=== PATIENT | male | born 1980 | race Caucasian/White ===

== ENCOUNTER 2020-07-12 09:58 | Outpatient (REF) | payer OTHER, SELFPAY ==
[2020-07-12 10:56] LABS: MANUAL DIFF FLAG NO
[2020-07-12 11:00] LABS: Basophils Percent Auto 0.6 % (0-2); Eosinophils Absolute Auto 0.1 X10*3/uL (0.0-0.4); Eosinophils Percent Auto 1.9 % (0-4); Hematocrit 46.7 % (42-52); Hemoglobin 15.8 g/dl (14.0-18.0); Imm Gran Abs Auto 0.01 X10*3/uL (0.00-0.03); Imm Gran Pct Auto 0.3 % (0.0-0.4); Lymphocytes Absolute Auto 1.2 X10*3/uL (1.2-4.9); Lymphocytes Percent Auto 39.2 % (20-40); Mean Corpuscular HGB Conc 33.8 g/dl (31.0-36.0); Mean Corpuscular Hemoglobin 30.6 pg (27.0-33.0); Mean Corpuscular Volume 90.5 fL (80-98); Mean Platelet Volume 10.5 fL (9.4-12.4); Monocytes Absolute Auto 0.4 X10*3/uL (0.1-1.2); Neutrophils Absolute Auto 1.5 X10*3/uL (2.0-8.3); Platelet Count 199 X10*3/uL (160-400); Red Blood Count 5.16 X10*6/uL (4.60-5.80); Red Cell Distribution Width 12.3 % (11.0-16.0); White Blood Count 3.2 X10*3/uL (4.8-10.8)
[2020-07-12 12:02] LABS: Alanine Aminotransferase 85 U/L (0-40); Alkaline Phosphatase 59 U/L (39-117); Anion Gap 14 (12-20); Aspartate Amino Transferase 41 U/L (5-37); Bilirubin Total 1.4 mg/dL (0.0-1.0); Blood Urea Nitrogen 23 mg/dL (9-16); Calcium 9.2 mg/dL (8.4-10.2); Carbon Dioxide 27 mmol/L (22-29); Chloride 106 mmol/L (96-108); Cholesterol 178 mg/dL; Estimated Glomerular Filt Rate > 60; Glucose Fasting 92 mg/dL (60-99); HDL Cholesterol 50 mg/dL; LDL Cholesterol Calculated 104 mg/dl; Potassium 4.3 mmol/l (3.3-5.1); Sodium 143 mmol/L (135-145); Total Protein 7.3 g/dL (6.5-8.0); Triglycerides 124 mg/dL
== END 2020-07-12 09:59 | disposition home or self-care (01) ==
LOC: HO.LAB 09:58
PROVIDERS: Visit Provider Internal Medicine
DX: E78.5 Hyperlipidemia, unspecified (principal); E11.9 Type 2 diabetes mellitus without complications
CPT/HCPCS: 36415; 80053; 80061; 85025

== ENCOUNTER 2020-08-10 07:30 | Outpatient (REF) | payer OTHER, SELFPAY | END 2020-08-10 07:31 | disposition home or self-care (01) | LOC: HO.LAB 07:30 | PROVIDERS: Visit Provider Internal Medicine | DX: Z20.828 Contact with and (suspected) exposure to other viral communicable diseases (principal) | CPT/HCPCS: C9803; U0003 ==

== ENCOUNTER → 2020-08-12 14:07 | Outpatient (BNVA) | payer OTHER, SELFPAY | PROVIDERS: PCP Internal Medicine; Referring Provider Internal Medicine; Visit Provider Surgery | DX: K64.4 Residual hemorrhoidal skin tags (principal) | CPT/HCPCS: 46600; 99202 ==

== ENCOUNTER 2021-07-26 08:18 | Outpatient (REF) | payer OTHER, SELFPAY ==
[2021-07-26 08:39] LABS: MANUAL DIFF FLAG NO
[2021-07-26 09:36] LABS: Basophils Percent Auto 0.8 % (0-2); Eosinophils Absolute Auto 0.1 X10*3/uL (0.0-0.4); Eosinophils Percent Auto 2.3 % (0-4); Hematocrit 47.6 % (42.0-52.0); Hemoglobin 15.9 g/dl (14.0-18.0); Imm Gran Abs Auto 0.01 X10*3/uL (0.00-0.03); Imm Gran Pct Auto 0.3 % (0.0-0.4); Lymphocytes Absolute Auto 1.3 X10*3/uL (1.2-4.9); Lymphocytes Percent Auto 37.3 % (20-40); Mean Corpuscular HGB Conc 33.4 g/dl (31.0-36.0); Mean Corpuscular Hemoglobin 30.3 pg (27.0-33.0); Mean Corpuscular Volume 90.8 fL (80.0-98.0); Mean Platelet Volume 10.5 fL (9.4-12.4); Monocytes Absolute Auto 0.4 X10*3/uL (0.1-1.2); Monocytes Percent Auto 10.7 % (2-11); Neutrophils Absolute Auto 1.7 x10*3/uL (2.0-8.3); Neutrophils Percent Auto 48.6 % (45-73); Platelet Count 200 X10*3/uL (160-400); Red Blood Count 5.24 X10*6/uL (4.60-5.80); Red Cell Distribution Width 12.1 % (11.0-16.0); White Blood Count 3.5 X10*3/uL (4.8-10.8)
[2021-07-26 10:04] LABS: Thyroid Stimulating Hormone 2.04 uIU/mL (0.32-4.0)
[2021-07-26 10:06] LABS: Alanine Aminotransferase 32 U/L (0-40); Albumin Level 4.9 g/dL (3.5-5.0); Alkaline Phosphatase 47 U/L (39-117); Anion Gap 13 (12-20); Aspartate Amino Transferase 24 U/L (5-37); Bilirubin Total 1.1 mg/dL (0.0-1.0); Blood Urea Nitrogen 13 mg/dL (9-16); Calcium 9.2 mg/dL (8.4-10.2); Carbon Dioxide 28 mmol/L (22-29); Chloride 106 mmol/L (96-108); Cholesterol 173 mg/dL; Estimated Glomerular Filt Rate > 60; Glucose Fasting 96 mg/dL (60-99); HDL Cholesterol 59 mg/dL; LDL Cholesterol Calculated 95 mg/dl; Sodium 143 mmol/L (135-145); Triglycerides 99 mg/dL
== END 2021-07-26 08:19 | disposition home or self-care (01) ==
LOC: HO.LAB 08:18
PROVIDERS: PCP Internal Medicine; Visit Provider Internal Medicine
DX: Z00.00 Encounter for general adult medical examination without abnormal findings (principal); E11.9 Type 2 diabetes mellitus without complications; E03.9 Hypothyroidism, unspecified
CPT/HCPCS: 36415; 80053; 80061; 84443; 85025

== ENCOUNTER 2022-04-15 09:06 | Outpatient (REF) | payer OTHER, SELFPAY ==
--- NOTE | 2022-04-15 | ECG_ITS ---
Test Reason : F41.9 Blood Pressure : / mmHG Vent. Rate : 065 BPM Atrial Rate : 065 BPM P-R Int : 150 ms QRS Dur : 092 ms QT Int : 390 ms P-R-T Axes : 058 012 028 degrees QTc Int : 405 ms Normal sinus rhythm Normal ECG When compared with ECG of 19-JUL-2012 08:05, No significant change was found Referred By: Lili Mo Electronically Signed By:RETA BORJAS
[2022-04-15 09:30] LABS: MANUAL DIFF FLAG NO
[2022-04-15 09:51] LABS: Eosinophils Absolute Auto 0.1 X10*3/uL (0.0-0.4); Hematocrit 46.1 % (42.0-52.0); Hemoglobin 15.8 g/dl (14.0-18.0); Imm Gran Abs Auto 0.01 X10*3/uL (0.00-0.03); Imm Gran Pct Auto 0.3 % (0.0-0.4); Lymphocytes Absolute Auto 1.2 X10*3/uL (1.2-4.9); Lymphocytes Percent Auto 38.6 % (20-40); Mean Corpuscular HGB Conc 34.3 g/dl (31.0-36.0); Mean Corpuscular Hemoglobin 30.8 pg (27.0-33.0); Mean Corpuscular Volume 89.9 fL (80.0-98.0); Mean Platelet Volume 10.1 fL (9.4-12.4); Monocytes Absolute Auto 0.4 X10*3/uL (0.1-1.2); Monocytes Percent Auto 12.1 % (2-11); Neutrophils Absolute Auto 1.4 x10*3/uL (2.0-8.3); Platelet Count 187 X10*3/uL (160-400); Red Blood Count 5.13 X10*6/uL (4.60-5.80); Red Cell Distribution Width 12.4 % (11.0-16.0); White Blood Count 3.1 X10*3/uL (4.8-10.8)
[2022-04-15 10:19] LABS: Alanine Aminotransferase 33 U/L (0-40); Albumin Level 4.9 g/dL (3.5-5.0); Alkaline Phosphatase 45 U/L (39-117); Anion Gap 10 (12-20); Aspartate Amino Transferase 25 U/L (5-37); Bilirubin Direct 0.4 mg/dL (0.0-0.5); Blood Urea Nitrogen 13 mg/dL (9-16); Calcium 8.9 mg/dL (8.4-10.2); Carbon Dioxide 27 mmol/L (22-29); Chloride 108 mmol/L (96-108); Estimated Glomerular Filt Rate > 60; Glucose Random 100 mg/dL (60-115); Potassium 4.3 mmol/L (3.3-5.1); Sodium 141 mmol/L (135-145); Total Protein 7.2 g/dL (6.5-8.0)
[2022-04-15 10:42] LABS: Thyroid Stimulating Hormone 1.73 uIU/mL (0.32-4.0)
== END 2022-04-15 09:07 | disposition home or self-care (01) ==
LOC: HO.LAB 09:06
PROVIDERS: PCP Internal Medicine; Visit Provider Clinical Nurse Specialist Psychiatric/Mental Health, Adult
DX: F41.9 Anxiety disorder, unspecified (principal)
CPT/HCPCS: 80048; 80076; 84443; 85025; 93005

== ENCOUNTER 2023-04-24 09:26 | Outpatient (REF) | payer OTHER, SELFPAY ==
[2023-04-24 09:34] LABS: MANUAL DIFF FLAG NO
[2023-04-24 10:13] LABS: Basophils Percent Auto 0.9 % (0-2); Eosinophils Absolute Auto 0.1 X10*3/uL (0.0-0.4); Eosinophils Percent Auto 2.3 % (0-4); Hematocrit 47.8 % (42.0-52.0); Hemoglobin 16.1 g/dl (14.0-18.0); Lymphocytes Absolute Auto 1.2 X10*3/uL (1.2-4.9); Lymphocytes Percent Auto 28.3 % (20-40); Mean Corpuscular HGB Conc 33.7 g/dl (31.0-36.0); Mean Corpuscular Hemoglobin 30.6 pg (27.0-33.0); Mean Corpuscular Volume 90.7 fL (80.0-98.0); Mean Platelet Volume 10.2 fL (9.4-12.4); Monocytes Absolute Auto 0.6 X10*3/uL (0.1-1.2); Monocytes Percent Auto 13.3 % (2-11); Neutrophils Absolute Auto 2.4 x10*3/uL (2.0-8.3); Neutrophils Percent Auto 55.2 % (45-73); Platelet Count 185 X10*3/uL (160-400); Red Blood Count 5.27 X10*6/uL (4.60-5.80); Red Cell Distribution Width 12.5 % (11.0-16.0); White Blood Count 4.4 X10*3/uL (4.8-10.8)
[2023-04-24 12:08] LABS: Alanine Aminotransferase 29 U/L (0-40); Albumin Level 4.6 g/dL (3.5-5.0); Alkaline Phosphatase 47 U/L (39-117); Anion Gap 13 (12-20); Aspartate Amino Transferase 21 U/L (5-37); Bilirubin Total 0.6 mg/dL (0.0-1.0); Blood Urea Nitrogen 12 mg/dL (9-16); Calcium 9.1 mg/dL (8.4-10.2); Carbon Dioxide 27 mmol/L (22-29); Chloride 107 mmol/L (96-108); Cholesterol 155 mg/dL; Estimated Glomerular Filt Rate > 60; Glucose Fasting 96 mg/dL (60-99); HDL Cholesterol 52 mg/dL; LDL Cholesterol Calculated 91 mg/dl; Sodium 143 mmol/L (135-145); Total Protein 6.9 g/dL (6.5-8.0); Triglycerides 64 mg/dL
[2023-04-24 12:09] LABS: TSH reflex Free T4 1.35 uIU/mL (0.32-4.0); Vitamin B12 490 pg/mL (200-900); Vitamin D 25-OH Total 23.9 ng/mL (>30)
== END 2023-04-24 09:27 | disposition home or self-care (01) ==
LOC: HO.LAB 09:26
PROVIDERS: PCP Internal Medicine; Visit Provider Internal Medicine
DX: Z00.00 Encounter for general adult medical examination without abnormal findings (principal); E78.5 Hyperlipidemia, unspecified; K21.9 Gastro-esophageal reflux disease without esophagitis
CPT/HCPCS: 36415; 80053; 80061; 82306; 82607; 82746; 84443; 85025

== ENCOUNTER 2023-05-12 14:24 | Outpatient (AMB) | payer OTHER, SELFPAY ==
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
[2023-05-12 14:33] VITALS: BP 128/70; PULSE 91; TEMP 36.6; O2SAT 100; BMI 40.2
== END 2023-05-12 16:32 | disposition home or self-care (01) ==
PROVIDERS: PCP Internal Medicine; Visit Provider Internal Medicine
DX: M54.50 Low back pain, unspecified (principal)
CPT/HCPCS: 99213

== ENCOUNTER 2023-07-13 15:55 | Outpatient (AMB) | payer MEDICARE, MEDICAID, SELFPAY ==
[2023-07-13 16:26] VITALS: BP 122/70; PULSE 76; TEMP 36.9; O2SAT 97; BMI 30.3
--- NOTE | 2023-07-13 16:26 | MHC.OFFWIV ---
Intake Vital Signs 07/13/23 16:26 Height 5 ft 8 in Weight 199 lb 8 oz BMI 30.3 BP 122/70 Blood Pressure Location Rt brachial Position Sitting Pulse 76 Pulse Source Pulse Oximeter Temp 98.5 F Temp Source Temporal Artery Scan Pulse Oximetry (%) 97 Oxygen Delivery Method Room Air Intake Visit Reasons: EP, back pain, nausea, headache Intake Note: pt is here for c/o back pain and headache and nausea Patient Tobacco Use Status: Never used Tobacco Allergies PCN Allergy (Unknown, Uncoded 07/14/23 06:46) oral swelling Medication List - Last Reconciled 07/14/23 by Thaddeus Krause MD acetaminophen (Tylenol) 650 mg (2 x 325 mg) PO Q6H PRN buspirone 10 mg PO BID ibuprofen 400 mg PO Q8H PRN simvastatin 20 mg PO BEDTIME Do you need a note to return to daycare/school/sports/work: Yes HPI EP, back pain, nausea, headache HPI Details 42-year-old male presents to the office for a sick visit. Patient lives in a senior living and is being brought in by an attendant. According to the attendant, patient has been complaining of headaches and back pain. Patient is able to verbalize and give his own history. Is complaining of on and off headaches which are mild. No nausea or vomiting. No changes in vision. No history of fall or injury ON LICENSE OF [facility] Medical History External hemorrhoids Obesity Physical exam Surgical History No pertinent past surgical history Family History Father History of colon cancer Mother History of colon polyps Substance use disorder Mental health disorder Social History Housing: Other Housing Other:: [facility] Alcohol intake: never Patient Tobacco Use Status: Never used Tobacco e-Cigarette/Vaping Use: Never Used Second Hand Smoke Exposure: No service: No Current occupational status: disabled Cognitive needs: No Hearing needs: No Vision needs: No Physical Exam Vital Signs: Last Vital Signs Temp 98.5 F 07/13/23 16:26 Pulse 76 07/13/23 16:26 BP 122/70 07/13/23 16:26 Pulse Ox 97 07/13/23 16:26 Oxygen Delivery Method Room Air 07/13/23 16:26 BMI result Body Mass Index 30.3 Const General: cooperative and healthy appearing Nutritional Appearance: well nourished Orientation/consciousness: patient oriented x3 Limitations: no limitations HEENT Head: Yes normal to inspection Eyes General: appearance normal, both eyes and all related structures Neck Neck: Yes normal visual inspection Chest Chest palpation & inspection: normal palpation of entire chest wall Resp Effort & Inspection: normal respiratory effort Neuro General: patient oriented x3 Assessment & Plan Assessment & Plan (1) Headache: Code(s): R51.9 - Headache, unspecified Plan: Mostly vascular in nature. OTC NSAIDS prescribed. Follow up here if sx not better. Medications: New ibuprofen 400 mg PO Q8H PRN 21 tabs 0RF pain Coding Level of Care Code Est Pt Level 3 (55133) Diagnoses Headache R51.9
== END 2023-07-13 17:06 | disposition home or self-care (01) ==
PROVIDERS: PCP Internal Medicine; Visit Provider Internal Medicine
DX: R51.9 Headache, unspecified (principal)
CPT/HCPCS: 99213

== ENCOUNTER 2023-07-27 13:31 | Outpatient (AMB) | payer MEDICARE, MEDICAID, SELFPAY ==
--- NOTE | 2023-07-27 13:43 | MHC.PC.OV ---
Vital Signs 07/27/23 13:44 Height 5 ft 8 in Weight 199 lb BMI 30.3 BP 118/70 Blood Pressure Location Lt brachial Position Sitting Pulse 90 Pulse Source Pulse Oximeter Pulse Oximetry (%) 97 Oxygen Delivery Method Room Air Intake Visit Reasons: Back Pains Intake Note: Patient is here today for chest pain, nausea, vomiting, calmness and back pain, ongoing since February 2023 Patient Biller Required: No Build Master: Present Accompanied by: staff Allergies PCN Allergy (Unknown, Uncoded 07/27/23 14:05) oral swelling Medication List - Last Reconciled 07/27/23 by SUNNI Montemayor acetaminophen (Tylenol) 650 mg (2 x 325 mg) PO Q6H PRN buspirone 10 mg PO BID ibuprofen 400 mg PO Q8H PRN simvastatin 20 mg PO BEDTIME Tobacco use date assessed: 07/27/23 Dental Screening Dental Screen Date: 07/27/23 Did you have a dental visit in the last 12 months?: Yes Did you have a dental problem in the last 6 months where you did not have access to dental care?: No Was dental information given to patient?: Patient has dentist HPI Back Pains HPI Details Patient is a 42-year-old female who presents today for an office visit due to epigastric pain and heartburn for long time now. Reports he feels better when he drinks cold water. Patient of Dr. Platt. Reports intermittent nausea/vomiting, reports vomiting phlegm this morning. Reports drinking soda and coffee on empty stomach. Reports normal bowel movement today. Denies chest pain in the office. Denies any back pain today. Went to [facility] 07/20/2023 due to the same symptoms, he did have normal EKG and negative troponin most likely related to anxiety. Patient is accompanied by a account group supervisor. [facility] Medical History COVID-19 virus infection Obesity Physical exam External hemorrhoids Surgical History No pertinent past surgical history Family History Father History of colon cancer Mother History of colon polyps Substance use disorder Mental health disorder Social History Housing: Other Housing Other:: [facility] Alcohol intake: never Patient Tobacco Use Status: Never used Tobacco e-Cigarette/Vaping Use: Never Used Second Hand Smoke Exposure: No service: No Current occupational status: disabled Cognitive needs: No Hearing needs: No Vision needs: No Questionnaire Thrive Questionnaire Date Thrive assessed: 09/22/22 DREA-7 AMB Questionnaire DREA-7 Date DREA - 7 assessed: 09/22/22 Source: Developed by Drs. Abel Malone, Flor Malone, Dewayne Sandoval and colleagues, with an educational real from [employer]. Review of Systems Const Denies body aches, Denies chills, Denies fever(s) and Denies headache(s) ENT Denies dizziness, Denies otalgia, Denies headache(s), Denies nasal discharge, Denies sinus pain and Denies sore throat Card Denies chest pain, Denies edema, Denies lightheadedness and Denies dyspnea Resp Denies cough, Denies dyspnea and Denies wheezing GI Denies abdominal pain, Denies constipation, Reports heartburn, Denies diarrhea, Reports nausea and Reports vomiting Denies dysuria Musc Denies myalgias Skin/Breast Denies rash Neuro Denies dizziness and Denies headache(s) Aller/Immun Denies wheezing Physical exam (Primary Care) Vital Signs: Last Vital Signs Pulse 90 07/27/23 13:44 BP 118/70 07/27/23 13:44 Pulse Ox 97 07/27/23 13:44 Oxygen Delivery Method Room Air 07/27/23 13:44 BMI result Body Mass Index 30.3 Tobacco/Smoking Status: Tobacco use Status Tobacco use date assessed 07/27/23 07/27/23 13:51 Patient Tobacco Use Status Never used Tobacco 07/27/23 13:51 e-Cigarette/Vaping Use Never Used 07/27/23 13:51 Thrive Assessment: Date of Thrive Assessment Date Thrive assessed 09/22/22 07/27/23 13:51 Const General: cooperative and no acute distress Orientation/consciousness: patient oriented x3 HENMT Head: Yes normocephalic and Yes atraumatic Throat: Yes posterior oropharynx normal Eyes General: appearance normal, both eyes and all related structures Neck Neck: Yes normal visual inspection and Yes full ROM Resp Effort & Inspection: normal respiratory effort and able to speak in complete sentences Auscultation: clear to auscultation bilaterally, no crackles, no rales, no rhonchi and no wheezes Cardio Rate: regular rate Rhythm: regular rhythm Heart sounds: S1 normal heart sound present, S2 normal heart sound present and no murmurs GI Palpation (GI): Soft to palpation, not firm, Tenderness to palpation present (GI) in the epigastrum; with no rebound tenderness, no guarding, not rigid and no hepatosplenomegaly Auscultation: normal bowel sounds Back/Spine/Pelvis Thoracic/Lumbar Spine: thoraco-lumbar ROM normal, No paraspinal muscle tenderness, No thoracic spinal tenderness and No lumbar spinal tenderness Skin General skin exam: no rashes or lesions noted Neuro General: patient oriented x3 Gait exam (Neuro): Normal gait present Extrem General: Yes full ROM and No edema Office Procedures Flu Questionnaire Does the patient have a severe egg allergy?: No Does the patient have severe life threatening allergies?: No Does the patient have a fever or illness today?: No Has the patient ever had Guillain-[place] Syndrome?: No Has the patient ever had any past reaction to a flu shot?: No Immunizations flu vacc [id number] 6mos up(PF) 60 mcg(15 mcgx4)/0.5 mL IM syringe Performing Provider: SUNNI Montemayor Performing Location: [facility] Administered by: ANNETTE Joyner on 07/27/23 13:57 Dose Route Admin Location Dispensed Lot Number Expiration Date NDC Magnetic Resonance Imaging Director 0.5 mL IM Left Deltoid 0.5 mL [id number] 03/19/24 22744-983-07 [employer] VIS Given Date VIS Provided VIS Publication Date 07/27/23 Single Vaccine 21 Eligibility Eligibility Date Funding Source Not [facility] Eligible 07/27/23 Private Assessment and Plan Assessment & Plan (1) GERD (gastroesophageal reflux disease): Code(s): K21.9 - Gastro-esophageal reflux disease without esophagitis Plan: Start omeprazole 20 mg daily Avoid GERD trigger foods Do not lay down 2-3 hours after evening meal Signs and symptoms reviewed when to notify provider or go to the emergency department Keep appointment with PCP 09/2023 as scheduled Orders: Orders Influenza Immunization 07/27/23 Z23 - Encounter for immunization Medications: New omeprazole 20 mg PO DAILY 60 caps 0RF K21.9 - Gastro-esophageal reflux disease without esophagitis Coding Level of Care Code Est Pt Level 3 (00626) Diagnoses GERD (gastroesophageal reflux disease) K21.9
[2023-07-27 13:44] VITALS: BP 118/70; PULSE 90; O2SAT 97; BMI 30.3
== END 2023-07-27 14:22 | disposition home or self-care (01) ==
PROVIDERS: PCP Internal Medicine; Visit Provider Nurse Practitioner Family
DX: Z23 Encounter for immunization (principal)
CPT/HCPCS: 90471; 90686; 99213

== ENCOUNTER 2023-09-23 13:20 | Outpatient (AMB) | payer MEDICARE, MEDICAID, SELFPAY ==
[2023-09-23 13:21] VITALS: BP 122/78; PULSE 78; O2SAT 98; BMI 30.9
--- NOTE | 2023-09-23 13:21 | MHC.PC.OV ---
Vital Signs 09/23/23 13:21 Height 5 ft 8 in Weight 203 lb BMI 30.9 BP 122/78 Blood Pressure Location Lt brachial Position Sitting Pulse 78 Pulse Source Pulse Oximeter Pulse Oximetry (%) 98 Oxygen Delivery Method Room Air Intake Visit Reasons: Annual Exam Intake Note: Patient is here today for a physical. First Assistant Required: No Allergies PCN Allergy (Unknown, Uncoded 09/23/23 13:21) oral swelling Medication List - Last Reconciled 09/23/23 by Jenni Platt MD acetaminophen (Tylenol) 650 mg (2 x 325 mg) PO Q6H PRN buspirone 20 mg PO BID fluoxetine 40 mg PO DAILY guanfacine ER 4 mg PO QPM ibuprofen 400 mg PO Q8H PRN omeprazole 20 mg PO DAILY simvastatin 20 mg PO BEDTIME Tobacco use date assessed: 09/23/23 Dental Screening Dental Screen Date: 09/23/23 Did you have a dental visit in the last 12 months?: Yes Did you have a dental problem in the last 6 months where you did not have access to dental care?: No Was dental information given to patient?: Patient has dentist HPI Annual Exam HPI Details 42-year-old obese male with GERD obsessive-compulsive behavior and hypercholesterolemia last seen in December 2022. Patient is here for physical exam review of the notes was seen by the nurse practitioner in July 2023 for back pains was in the ER 07/20/2023 concern about anxiety GERD problem and was given omeprazole. L shoulder pain 2 years PFSH Medical History (Updated 09/23/23 @ 14:11 by Jenni Platt MD) Physical exam, annual COVID-19 virus infection Obesity Physical exam External hemorrhoids Surgical History No pertinent past surgical history Family History Father History of colon cancer Mother History of colon polyps Substance use disorder Mental health disorder Social History (Updated 09/23/23 @ 14:02 by Jenni Platt MD) Housing: Other Housing Other:: Care Home Alcohol intake: current Comment: once a month 1 drink Patient Tobacco Use Status: Never used Tobacco e-Cigarette/Vaping Use: Never Used Second Hand Smoke Exposure: No service: No Current occupational status: disabled Cognitive needs: No Hearing needs: No Vision needs: No Questionnaire PHQ-9 Over the last 2 weeks, how often have you been bothered by any of the following problems? 1. Little interest or pleasure in doing things: not at all 2. Feeling down, depressed, or hopeless: not at all 3. Trouble falling or staying asleep, or sleeping too much: not at all 4. Feeling tired or having little energy: not at all 5. Poor appetite or overeating: not at all 6. Feeling bad about yourself - or that you are a failure or have let yourself or your family down: not at all 7. Trouble concentrating on things, such as reading the newspaper or watching television: not at all 8. Moving or speaking so slowly that other people could have noticed. Or the opposite - being so fidgety or restless that you have been moving around a lot more than usual: not at all 9. Thoughts that you would be better off or of hurting yourself in some way: not at all Total score: 0 Depression Screening Interpretation: Negative Depression Screening Done: Yes Source: Developed by Drs. Abel Malone, Flor Malone, Dewayne Sandoval and colleagues, with an educational real from [employer]. Thrive Questionnaire Date Thrive assessed: 09/23/23 I am a: Patient What is your living situation today?: I have a steady place to live Within the past 12 months, did the food you bought not last and you didn't have the money to get more?: Never true Within the past 12 months, did you worry whether your food would run out before you got money to buy more?: Never true Do you have trouble paying for medicines?: No Do you have trouble getting transportation to medical appointments?: No Do you have trouble paying your heating and electricity bill?: No Do you have trouble taking care of your child, family member or friend?: No Do you have trouble with day-to-day activities such as bathing, preparing meals, shopping, managing finances, etc.?: No Are you currently unemployed and looking for a job?: No Are you interested in more education?: No AUDIT C Alcohol Use Questionnaire (AUDIT-C) 1. How often do you have a drink containing alcohol?: Monthly or less 2. How many drinks containing alcohol do you have on a typical day when you are drinking?: 1 or 2 3. How often do you have six or more drinks on one occasion?: Never Total Score: 1 Score Reviewed/Action Taken: No DREA-7 AMB Questionnaire DREA-7 Date DREA - 7 assessed: 09/23/23 Feeling nervous, anxious, or on edge: 0 = Not at all Not being able to stop or control worryin = Not at all Worrying too much about different things: 0 = Not at all Trouble relaxin = Not at all Being so restless that it is hard to sit still: 0 = Not at all Becoming easily annoyed or irritable: 0 = Not at all Feeling afraid as if something awful might happen: 0 = Not at all Total DREA-7 score (0-4 normal; 5-9 mild; 10-14 moderate; 15-21 severe): 0 Source: Developed by Drs. Abel Malone, Flor Malone, Dewayne Sandoval and colleagues, with an educational real from [employer]. Review of Systems Const Denies poor appetite and Denies weakness Eyes Denies no additional complaints ENT Reports Normal hearing present, Denies dizziness, Denies nasal congestion, Denies tinnitus and Denies sore throat Card Denies chest pain, Denies syncope, Denies rapid heart rate and Denies dyspnea Resp Denies cough and Denies dyspnea GI Denies change in stool character, Reports constipation, Denies diarrhea, Denies nausea and Denies vomiting Denies dysuria and Denies urinary frequency Neuro Reports Normal hearing present, Denies confusion, Denies dizziness, Denies syncope and Denies weakness Psych Denies confusion Physical exam (Primary Care) Vital Signs: Last Vital Signs Pulse 78 09/23/23 13:21 BP 122/78 09/23/23 13:21 Pulse Ox 98 09/23/23 13:21 Oxygen Delivery Method Room Air 09/23/23 13:21 BMI result Body Mass Index 30.9 Tobacco/Smoking Status: Tobacco use Status Tobacco use date assessed 09/23/23 09/23/23 13:22 Patient Tobacco Use Status Never used Tobacco 09/23/23 13:22 e-Cigarette/Vaping Use Never Used 09/23/23 13:22 PHQ-9: PHQ-9 Score PHQ-9: Total score 0 09/23/23 13:22 Depression Screening Interpretation: Negative Thrive Assessment: Date of Thrive Assessment Date Thrive assessed 09/23/23 09/23/23 13:22 Const General: No confusion Orientation/consciousness: No confusion HENMT Head: Yes normocephalic Ears: external ears normal and TM's normal bilaterally Face and sinus: Yes normal facial exam Mouth: moist mucous membranes Throat: Yes tonsils normal Eyes Conjunctivae: conjunctivae normal Pupils: Equal, round and reactive pupils present and Pupil accommodation reflex normal Direct Ophthalmoscopy: normal light reflex Neck Other: trapesium pain L - but exam N Neck: No lymphadenopathy Thyroid: Thyroid normal Chest Chest palpation & inspection: normal inspection of the chest Resp Effort & Inspection: normal respiratory effort and no audible wheezes Auscultation: clear to auscultation bilaterally, no crackles, no wheezes and lung sounds not diminished Cardio Rate: regular rate Rhythm: regular rhythm Peripheral pulses: radial pulses present and dorsalis pedis present GI Other: visual exam neg Palpation (GI): no masses Auscultation: normal bowel sounds and normoactive bowel sounds Rectal Exam - Male: Yes deferred Male General Exam: Yes normal external exam Skin General skin exam: no rashes or lesions noted Rashes: no rashes Neuro General: No confusion Cranial nerves: Yes Equal, round and reactive pupils present and Yes Normal hearing present Cognition (Neuro): normal cognition Gait exam (Neuro): Normal gait present Motor exam (neuro): 5/5 motor strength present throughout Deep tendon reflexes (DTR's): Right brachioradialis reflex intensity grade: 2+, Left brachioradialis reflex intensity grade: 2+, Right patellar reflex intensity grade: 2+ and Left patellar reflex intensity grade: 2+ Extrem General: No edema Assessment and Plan Assessment & Plan (1) Physical exam, annual: Code(s): Z00.00 - Encounter for general adult medical examination without abnormal findings (2) GERD (gastroesophageal reflux disease): Code(s): K21.9 - Gastro-esophageal reflux disease without esophagitis Plan: Avoid the foods that causes that usually spicy foods, tomato products, juices, coffee, soda and foods that your sensitive to. After eating do not lie down, allow 3-4 hours before in lie down. And keep the head of bed above 30 degrees to avoid the acid from going up. Presently on omeprazole (3) Obsessive compulsive disorder: Code(s): F42.9 - Obsessive-compulsive disorder, unspecified Plan: Continue with counseling and therapy (4) Obesity: Code(s): E66.9 - Obesity, unspecified Qualifiers: Obesity classification: adult class 1 (BMI 30 - 34.9) Serious obesity comorbidity presence: without serious comorbidity Body mass index: BMI 31.0-31.9 Plan: Diet and exercise (5) Hyperlipidemia: Code(s): E78.5 - Hyperlipidemia, unspecified Plan: Avoid fried foods, chicken skin, eggs, butter margarine, pastries and meat. Be it pork or beef they have a lot of cholesterol LDL goal of less than 130 and triglyceride of less than 150. Patient on simvastatin 20 mg once a day (6) Trapezius strain: Code(s): S46.819A - Strain of other muscles, fascia and tendons at shoulder and upper arm level, unspecified arm, initial encounter Plan: advised heat and exercise Coding Level of Care Code Est Pt Prev Care 40-64y(77467) Diagnoses Physical exam, annual Z00.00 GERD (gastroesophageal reflux disease) K21.9 Obsessive compulsive disorder F42.9 Obesity E66.9 Obesity classification: adult class 1 (BMI 30 - 34.9) Serious obesity comorbidity presence: without serious comorbidity Body mass index: BMI 31.0-31.9 Hyperlipidemia E78.5 Trapezius strain S46.819A
== END 2023-09-23 14:21 | disposition home or self-care (01) ==
PROVIDERS: Visit Provider Internal Medicine
DX: Z00.00 Encounter for general adult medical examination without abnormal findings (principal); K21.9 Gastro-esophageal reflux disease without esophagitis; E66.9 Obesity, unspecified; Z68.30 Body mass index [BMI] 30.0-30.9, adult; F42.9 Obsessive-compulsive disorder, unspecified; E78.5 Hyperlipidemia, unspecified; S46.819A Strain of other muscles, fascia and tendons at shoulder and upper arm level, unspecified arm, initial encounter
CPT/HCPCS: 99396

== ENCOUNTER 2024-03-27 12:57 | Outpatient (AMB) | payer MEDICARE, MEDICAID, SELFPAY ==
--- NOTE | 2024-03-27 13:01 | MHC.PC.OV ---
Vital Signs 03/27/24 13:08 Height 5 ft 8 in Weight 214 lb BMI 32.5 BP 128/78 Blood Pressure Location Lt brachial Position Sitting Pulse 80 Pulse Source Pulse Oximeter Pulse Oximetry (%) 98 Oxygen Delivery Method Room Air Intake Visit Reasons: cholesterol Intake Note: Caregiver would like the patient to undergo a barium swallow as she finds that he is choking more often. Patient does have dentures that he does not like to use and therefore is probably not chewing his food properly but she would like to be sure. Allergies PCN Allergy (Unknown, Uncoded 03/27/24 13:08) oral swelling Tobacco use date assessed: 09/23/23 Dental Screening Dental Screen Date: 09/23/23 HPI cholesterol HPI Details 43-year-old obese male(noted 11 lb weight gain) with a history of GERD hypercholesterolemia and obsessive-compulsive disorder coming in for follow-up. Last seen in 10/09/2023. Review of the notes wanted to be seen today for concern on December 02 on needing to be restrained. 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 rohan [place] [phone] trying to call busy left message on the phone [facility] Medical History (Updated 03/27/24 @ 13:49 by Jenni Platt MD) Physical exam, annual COVID-19 virus infection Obesity Physical exam External hemorrhoids Surgical History No pertinent past surgical history Family History Father History of colon cancer Mother History of colon polyps Substance use disorder Mental health disorder Social History (Updated 09/23/23 @ 14:02 by Jenni Platt MD) Housing: Other Housing Other:: Half-Way Alcohol intake: current Comment: once a month 1 drink Patient Tobacco Use Status: Never used Tobacco e-Cigarette/Vaping Use: Never Used Second Hand Smoke Exposure: No service: No Current occupational status: disabled Cognitive needs: No Hearing needs: No Vision needs: No Questionnaire PHQ-9 Over the last 2 weeks, how often have you been bothered by any of the following problems? 1. Little interest or pleasure in doing things: not at all 2. Feeling down, depressed, or hopeless: not at all 3. Trouble falling or staying asleep, or sleeping too much: not at all 4. Feeling tired or having little energy: not at all 5. Poor appetite or overeating: not at all 6. Feeling bad about yourself - or that you are a failure or have let yourself or your family down: not at all 7. Trouble concentrating on things, such as reading the newspaper or watching television: not at all 8. Moving or speaking so slowly that other people could have noticed. Or the opposite - being so fidgety or restless that you have been moving around a lot more than usual: not at all 9. Thoughts that you would be better off or of hurting yourself in some way: not at all Total score: 0 Depression Screening Interpretation: Negative Depression Screening Done: Yes Source: Developed by Drs. Abel Malone, Flor Malone, Dewayne Sandoval and colleagues, with an educational real from [employer]. Thrive Questionnaire Date Thrive assessed: 09/23/23 AUDIT C Alcohol Use Questionnaire (AUDIT-C) 1. How often do you have a drink containing alcohol?: Monthly or less 2. How many drinks containing alcohol do you have on a typical day when you are drinking?: 1 or 2 3. How often do you have six or more drinks on one occasion?: Never Total Score: 1 Score Reviewed/Action Taken: No DREA-7 AMB Questionnaire DREA-7 Date DREA - 7 assessed: 09/23/23 Source: Developed by Drs. Abel Malone, Flor Malone, Dewayne Sandoval and colleagues, with an educational real from [employer]. Physical exam (Primary Care) Vital Signs: Last Vital Signs Pulse 80 03/27/24 13:08 BP 128/78 03/27/24 13:08 Pulse Ox 98 03/27/24 13:08 Oxygen Delivery Method Room Air 03/27/24 13:08 BMI result Body Mass Index 32.5 Tobacco/Smoking Status: Tobacco use Status Tobacco use date assessed 09/23/23 03/27/24 13:01 Patient Tobacco Use Status Never used Tobacco 03/27/24 13:01 e-Cigarette/Vaping Use Never Used 03/27/24 13:01 PHQ-9: PHQ-9 Score PHQ-9: Total score 0 03/27/24 13:42 Depression Screening Interpretation: Negative Thrive Assessment: Date of Thrive Assessment Date Thrive assessed 09/23/23 03/27/24 13:01 Const General: alert; No acute distress Eyes Conjunctivae: conjunctivae normal Resp Auscultation: clear to auscultation bilaterally Cardio Rate: regular rate Rhythm: regular rhythm GI Inspection: Yes normal to inspection Extrem General: Yes normal to inspection and No edema Assessment and Plan Assessment & Plan (1) Obesity: Code(s): E66.9 - Obesity, unspecified Qualifiers: Body mass index: BMI 31.0-31.9 Obesity classification: adult class 1 (BMI 30 - 34.9) Serious obesity comorbidity presence: without serious comorbidity Plan: Diet and exercise (2) Obsessive compulsive disorder: Code(s): F42.9 - Obsessive-compulsive disorder, unspecified Plan: has been told that patient is not behaving and has not been listening - is seeing psychiatric nurse and left message on the phone. Concern about control. (3) GERD (gastroesophageal reflux disease): Code(s): K21.9 - Gastro-esophageal reflux disease without esophagitis Plan: Avoid the foods that causes that usually spicy foods, tomato products, juices, coffee, soda and foods that your sensitive to. After eating do not lie down, allow 3-4 hours before in lie down. And keep the head of bed above 30 degrees to avoid the acid from going up. (4) Dysphagia: Code(s): R13.10 - Dysphagia, unspecified Plan: Barium swallow requested (5) Colon cancer screening: Code(s): Z12.11 - Encounter for screening for malignant neoplasm of colon Plan: Referral to Gastroenterology Orders: Orders FL barium swallow Today R13.10 - Dysphagia, unspecified FL upper GI series Today R13.10 - Dysphagia, unspecified Coding Level of Care Code Est Pt Level 4 (72044) Diagnoses Obesity E66.9 Body mass index: BMI 31.0-31.9 Obesity classification: adult class 1 (BMI 30 - 34.9) Serious obesity comorbidity presence: without serious comorbidity Obsessive compulsive disorder F42.9 GERD (gastroesophageal reflux disease) K21.9 Dysphagia R13.10 Colon cancer screening Z12.11
[2024-03-27 13:08] VITALS: BP 128/78; PULSE 80; O2SAT 98; BMI 32.5
== END 2024-03-27 13:57 | disposition home or self-care (01) ==
PROVIDERS: PCP Internal Medicine; Visit Provider Internal Medicine
DX: R13.10 Dysphagia, unspecified (principal); K21.9 Gastro-esophageal reflux disease without esophagitis; E78.00 Pure hypercholesterolemia, unspecified; F42.9 Obsessive-compulsive disorder, unspecified
CPT/HCPCS: 99214

== ENCOUNTER 2024-05-10 09:50 | Outpatient (AMB) | payer MEDICARE, MEDICAID, SELFPAY ==
[2024-05-10 09:55] VITALS: BP 116/75; PULSE 87; O2SAT 97; BMI 32.4
--- NOTE | 2024-05-10 09:55 | MHC.PC.OV ---
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 Platt coming in for acute problem. Today he tells us he has been having shoulder pain radiating into the elbows for the last 2 weeks. 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 He has pain with overhead activities and with internal rotation of the bilateral shoulders. Denies any inciting injury or fall and denies numbness and tingling in bilateral hands.. Pain is worse at the end of the day and 1st thing in the morning. He does mentioned he moves around a lot while sleeping and sometimes falls asleep on the shoulder. He takes Tylenol and ibuprofen as needed for pain. He also mentions he has a cough that started today without any other associated symptoms. [facility] Medical History (Updated 05/10/24 @ 10:27 by Irene Pittman PA-C) Physical exam, annual COVID-19 virus infection Obesity Physical exam External hemorrhoids Surgical History No pertinent past surgical history Family History Father History of colon cancer Mother History of colon polyps Substance use disorder Mental health disorder Social History (Updated 09/23/23 @ 14:02 by Jenni Platt MD) Housing: Other Housing Other:: [facility] Alcohol intake: current Comment: once a month 1 drink Patient Tobacco Use Status: Never used Tobacco e-Cigarette/Vaping Use: Never Used Second Hand Smoke Exposure: No service: No Current occupational status: disabled Cognitive needs: No Hearing needs: No Vision needs: No Questionnaire Thrive Questionnaire Date Thrive assessed: 09/23/23 AUDIT C Alcohol Use Questionnaire (AUDIT-C) 1. How often do you have a drink containing alcohol?: Monthly or less 2. How many drinks containing alcohol do you have on a typical day when you are drinking?: 1 or 2 3. How often do you have six or more drinks on one occasion?: Never Total Score: 1 Score Reviewed/Action Taken: No DREA-7 AMB Questionnaire DREA-7 Date DREA - 7 assessed: 09/23/23 Source: Developed by Drs. Abel Malone, Flor Malone, Dewayne Sandoval and colleagues, with an educational real from [employer]. Review of Systems Const Denies body aches, Denies chills, Denies fever(s), Denies headache(s) and Denies poor appetite Eyes Reports no additional complaints ENT Reports dizziness (Occasionally) and Denies headache(s) Card Reports no additional complaints, Denies lightheadedness and Denies dyspnea Resp Reports cough, Denies hemoptysis and Denies dyspnea GI Reports no additional complaints Reports no additional complaints Musc Reports as per HPI Skin/Breast Reports system reviewed and no additional complaints, except as documented Neuro Reports dizziness (Occasionally) and Denies headache(s) Psych Reports no additional complaints Physical exam (Primary Care) Vital Signs: Last Vital Signs Pulse 87 05/10/24 09:55 BP 116/75 05/10/24 09:55 Pulse Ox 97 05/10/24 09:55 Oxygen Delivery Method Room Air 05/10/24 09:55 BMI result Body Mass Index 32.4 Tobacco/Smoking Status: Tobacco use Status Tobacco use date assessed 09/23/23 05/10/24 10:00 Patient Tobacco Use Status Never used Tobacco 05/10/24 10:00 e-Cigarette/Vaping Use Never Used 05/10/24 10:00 Thrive Assessment: Date of Thrive Assessment Date Thrive assessed 09/23/23 05/10/24 10:00 Const General: cooperative, healthy appearing, comfortable and no acute distress Orientation/consciousness: patient oriented x3 HENMT Head: Yes normocephalic Ears: hearing grossly normal bilaterally General nose exam: Normal external nose present Eyes General: appearance normal, both eyes and all related structures Conjunctivae: conjunctivae normal Neck Neck: Yes full ROM and Yes no lymphadenopathy Resp Effort & Inspection: normal respiratory effort Auscultation: clear to auscultation bilaterally, no crackles, no rales, no rhonchi and no wheezes Cardio Rate: regular rate Rhythm: regular rhythm Skin General skin exam: no rashes or lesions noted Neuro General: patient oriented x3 Gait exam (Neuro): Normal gait present Extrem Other: pain with extension and internal rotation of both shoulders. Pain to palpation of posterior aspect of left shoulder and lateral aspect of right shoulder. General: Yes normal to inspection, Yes full ROM and No edema Psych Affect: normal affect Attitude: cooperative Insight: Good insight present (Psych) Judgement: Good judgement present (Psych) Assessment and Plan Assessment & Plan (1) Shoulder pain: Code(s): M25.519 - Pain in unspecified shoulder Plan: Patient complaining of bilateral shoulder pain that worsens at the end of the day and 1st thing in the morning. He does mentioned he lifts heavy items at work and does a lot of overhead work. Patient also having tenderness to palpation on exam. Bilateral shoulder x-ray ordered today and order placed for physical therapy. If pain does not improve with physical therapy we can consider orthopedics referral. Advised patient to avoid overhead activities and lifting over 20 lb until evaluated by Physical therapy. (2) Cough: Code(s): R05.9 - Cough, unspecified Plan: Patient complaining of a cough that started today and would like to have a COVID test. Order placed today. Plan This note was constructed using voice recognition software. While every effort has been made to ensure accuracy and chemical compounder, still areas may have been included sometimes these areas may affect the content or meeting of the given symptoms. Total time spent caring for the patient today was 30 minutes. This includes time spent before the visit reviewing the chart, time spent during the visit, and time spent after the visit and documentation. Orders: Orders XR shoulder RT min 2V Today M25.519 - Pain in unspecified shoulder XR shoulder LT min 2V Today M25.519 - Pain in unspecified shoulder COVID-19 ID NOW ([facility]) Today M25.519 - Pain in unspecified shoulder, R05.9 - Cough, unspecified PT Evaluation and Treatment Today M25.519 - Pain in unspecified shoulder Medications: Refilled ibuprofen 400 mg PO Q8H PRN 21 tabs 0RF pain Coding Level of Care Code Est Pt Level 3 (56262) Diagnoses Shoulder pain M25.519 Cough R05.9
== END 2024-05-10 10:30 | disposition home or self-care (01) ==
PROVIDERS: PCP Internal Medicine
DX: M25.511 Pain in right shoulder (principal); R05.9 Cough, unspecified
CPT/HCPCS: 99214

== ENCOUNTER 2024-05-10 10:33 | Outpatient (REF) | payer MEDICARE, MEDICAID, SELFPAY ==
--- NOTE | ~2024-05-10 | XR_ITS ---
EXAMINATION: XR SHOULDER, RIGHT XR SHOULDER, LEFT CLINICAL INFORMATION: Pain in the shoulders. No known injury. COMPARISON: None available. TECHNIQUE: AP external rotation, Grashey, scapular Y, and axillary views of each shoulder. FINDINGS: RIGHT SHOULDER: Small marginal osteophytes at the glenoid. No fracture or malalignment. Glenohumeral joint space is normal. Acromioclavicular joint is well-preserved. Soft tissues are unremarkable. LEFT SHOULDER: Small marginal osteophyte at the glenoid. No fracture or malalignment. Glenohumeral joint space is normal. Acromioclavicular joint appears well-preserved. Soft tissues are unremarkable. XR/XR shoulder RT min 2V IMPRESSION: Aside from small glenoid marginal osteophytes, the glenohumeral joints are well-preserved. Otherwise normal radiographs of the shoulders. Electronically signed by: Jorge Lynn MD 06/02/2024 09:39 PM EDT
--- NOTE | ~2024-05-10 | XR_ITS ---
EXAMINATION: XR SHOULDER, RIGHT XR SHOULDER, LEFT CLINICAL INFORMATION: Pain in the shoulders. No known injury. COMPARISON: None available. TECHNIQUE: AP external rotation, Grashey, scapular Y, and axillary views of each shoulder. FINDINGS: RIGHT SHOULDER: Small marginal osteophytes at the glenoid. No fracture or malalignment. Glenohumeral joint space is normal. Acromioclavicular joint is well-preserved. Soft tissues are unremarkable. LEFT SHOULDER: Small marginal osteophyte at the glenoid. No fracture or malalignment. Glenohumeral joint space is normal. Acromioclavicular joint appears well-preserved. Soft tissues are unremarkable. XR/XR shoulder LT min 2V IMPRESSION: Aside from small glenoid marginal osteophytes, the glenohumeral joints are well-preserved. Otherwise normal radiographs of the shoulders. Electronically signed by: Jorge Lynn MD 06/02/2024 09:39 PM EDT
[2024-05-10 11:34] LABS: COVID-19 Test Negative (Negative); IDNOW Serial# 152EDE1D
== END 2024-05-10 10:34 | disposition home or self-care (01) ==
LOC: HO.XRAY 10:33
PROVIDERS: PCP Internal Medicine
DX: M25.511 Pain in right shoulder (principal); R05.9 Cough, unspecified; M25.512 Pain in left shoulder
CPT/HCPCS: 73030; 87635

== ENCOUNTER 2024-06-09 09:54 | Outpatient (REF) | payer MEDICARE, MEDICAID, SELFPAY ==
--- NOTE | ~2024-06-09 | FL_ITS ---
EXAMINATION: XR UPPER GI SERIES CLINICAL INFORMATION: Reflux. COMPARISON: None TECHNIQUE: Fluoroscopic air contrast upper GI examination was performed utilizing standard techniques with thin and thick barium and effervescent granules. Numerous spot images were obtained. FINDINGS: Dual and single contrast images of the esophagus demonstrate normal caliber, contour, and mucosal pattern. No evidence of stricture, mass, or ulcerations identified. Esophageal peristalsis was normal. A small type I hiatal hernia is present. Gastroesophageal reflux is observed up to the midesophagus. Dual contrast and single contrast images of the stomach demonstrated a normal contour. The gastric rugal folds have a thickened appearance, suggestive of gastritis. No masses or ulcerations are seen. There are a few small well-circumscribed filling defects in the body of the stomach that likely represent small hyperplastic polyps. Contrast freely passed into the gastric antrum and duodenal bulb without delay. Single and air-contrast images of the duodenal bulb demonstrate no abnormality. The duodenal sweep has a normal appearance, course, and mucosal fold appearance. The imaged proximal jejunum has a normal fold pattern and caliber. FLUOROSCOPY TIME: 3 minutes 23 seconds Number of Spot Images: 9 Number of Cine: 12 DOSE AREA PRODUCT: 3022 uGy-m2 (microgray-meter squared) FL/FL upper GI w air w Ba Swallow IMPRESSION: 1. Small type I hiatal hernia. 2. Moderate gastroesophageal reflux. 3.Thickened appearance of the gastric rugal folds, suggestive of gastritis. 4. Multiple well-circumscribed filling defects in the body of the stomach that likely represent small hyperplastic polyps. Recommend correlation of EGD. This procedure was performed by Aly Koroma PA-C, and supervised by Dr. Montana Electronically signed by: Jorge Montana MD 06/12/2024 01:00 PM EDT
== END 2024-06-09 09:55 | disposition home or self-care (01) ==
LOC: HO.XRAY 09:54
PROVIDERS: PCP Internal Medicine; Visit Provider Internal Medicine
DX: R13.10 Dysphagia, unspecified (principal)
CPT/HCPCS: 74246

== ENCOUNTER → 2024-06-09 09:56 | Outpatient (BNV) | payer MEDICARE, MEDICAID, SELFPAY | PROVIDERS: PCP Internal Medicine; Visit Provider Radiology Diagnostic Radiology | DX: K21.9 Gastro-esophageal reflux disease without esophagitis (principal) | CPT/HCPCS: 74246 ==

== ENCOUNTER 2024-08-15 14:01 | Outpatient (AMB) | payer MEDICARE, MEDICAID, SELFPAY ==
[2024-08-15 14:03] VITALS: BP 122/76; PULSE 86; O2SAT 97; BMI 33.4
--- NOTE | 2024-08-15 14:03 | MHC.PC.OV ---
Vital Signs 08/15/24 14:03 Height 5 ft 8 in Weight 220 lb BMI 33.4 BP 122/76 Blood Pressure Location Lt brachial Position Sitting Pulse 86 Pulse Source Pulse Oximeter Pulse Oximetry (%) 97 Oxygen Delivery Method Room Air Intake Visit Reasons: feet injure Allergies PCN Allergy (Unknown, Uncoded 08/15/24 14:04) oral swelling Tobacco use date assessed: 09/23/23 Dental Screening Dental Screen Date: 09/23/23 HPI feet injure HPI Details 43-year-old obese male with a history of hypercholesterolemia obsessive-compulsive disorder GERD last seen in April having showed the pain. X-rays of the shoulder requested as well as physical therapy. Review of the notes had dysphagia and barium swallow requested showing small hiatal hernia type 1 moderate reflux with thickened gastric rugal folds suggestive of gastritis and filling defects in the body of the stomach representing polyps. Advised EGD. As for shoulder x-rays showed marginal osteophytes PFSH Medical History (Updated 08/15/24 @ 14:18 by Jenni Platt MD) Physical exam, annual COVID-19 virus infection Obesity Physical exam External hemorrhoids Surgical History No pertinent past surgical history Family History Father History of colon cancer Mother History of colon polyps Substance use disorder Mental health disorder Social History (Updated 09/23/23 @ 14:02 by Jenni Platt MD) Housing: Other Housing Other:: Halfway Alcohol intake: current Comment: once a month 1 drink Patient Tobacco Use Status: Never used Tobacco Tobacco use type: Cigarette e-Cigarette/Vaping Use: Never Used Second Hand Smoke Exposure: No service: No Current occupational status: disabled Cognitive needs: No Hearing needs: No Vision needs: No Questionnaire PHQ-9 Over the last 2 weeks, how often have you been bothered by any of the following problems? 1. Little interest or pleasure in doing things: not at all 2. Feeling down, depressed, or hopeless: not at all 3. Trouble falling or staying asleep, or sleeping too much: not at all 4. Feeling tired or having little energy: not at all 5. Poor appetite or overeating: not at all 6. Feeling bad about yourself - or that you are a failure or have let yourself or your family down: not at all 7. Trouble concentrating on things, such as reading the newspaper or watching television: not at all 8. Moving or speaking so slowly that other people could have noticed. Or the opposite - being so fidgety or restless that you have been moving around a lot more than usual: not at all 9. Thoughts that you would be better off or of hurting yourself in some way: not at all Total score: 0 Depression Screening Interpretation: Negative Depression Screening Done: Yes Source: Developed by Drs. Abel Malone, Flor Malone, Dewayne Sandoval and colleagues, with an educational real from [employer]. Thrive Questionnaire Date Thrive assessed: 09/23/23 AUDIT C Alcohol Use Questionnaire (AUDIT-C) 3. How often do you have six or more drinks on one occasion?: Never Total Score: 0 DREA-7 AMB Questionnaire DREA-7 Date DREA - 7 assessed: 09/23/23 Source: Developed by Drs. Abel Malone, Flor Malone, Dewayne Sandoval and colleagues, with an educational real from [employer]. Physical exam (Primary Care) Vital Signs: Last Vital Signs Pulse 86 08/15/24 14:03 BP 122/76 08/15/24 14:03 Pulse Ox 97 08/15/24 14:03 Oxygen Delivery Method Room Air 08/15/24 14:03 BMI result Body Mass Index 33.4 Tobacco/Smoking Status: Tobacco use Status Tobacco use date assessed 09/23/23 08/15/24 14:10 Patient Tobacco Use Status Never used Tobacco 08/15/24 14:10 Tobacco use type Cigarette 08/15/24 14:10 e-Cigarette/Vaping Use Never Used 08/15/24 14:10 PHQ-9: PHQ-9 Score PHQ-9: Total score 0 08/15/24 14:10 Depression Screening Interpretation: Negative Thrive Assessment: Date of Thrive Assessment Date Thrive assessed 09/23/23 08/15/24 14:10 Const General: alert; No acute distress Eyes Conjunctivae: conjunctivae normal Resp Auscultation: clear to auscultation bilaterally Cardio Rate: regular rate Rhythm: regular rhythm GI Inspection: Yes normal to inspection Extrem General: Yes normal to inspection and No edema Coding Level of Care Code Est Pt Level 4 (09183) Complex EM visit Add On G2211 Diagnoses Gastritis K29.70 Gastric polyp K31.7 Colon cancer screening Z12.11 Acute pain of both shoulders M25.511; M25.512 Chronicity: acute Laterality: bilateral Gastroesophageal reflux disease without esophagitis K21.9 Esophagitis presence: without esophagitis Class 1 obesity due to excess calories without serious comorbidity with body mass index (BMI) of 31.0 to 31.9 in adult E66.811; E66.09; Z68.31 Obesity classification: adult class 1 (BMI 30 - 34.9) Serious obesity comorbidity presence: without serious comorbidity Body mass index: BMI 31.0-31.9 Obesity type: due to excess calories Obsessive-compulsive disorder, unspecified type F42.9 Obsessive-compulsive disorder type: unspecified Assessment & Plan Assessment & Plan (1) Gastritis: Code(s): K29.70 - Gastritis, unspecified, without bleeding Category: Medical Plan: Patient is on omeprazole and has been referred to Gastroenterology (2) Gastric polyp: Code(s): K31.7 - Polyp of stomach and duodenum Category: Medical Plan: Patient has been referred to Gastroenterology and has a schedule in October (3) Colon cancer screening: Code(s): Z12.11 - Encounter for screening for malignant neoplasm of colon Category: Medical Plan: 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 (5) GERD (gastroesophageal reflux disease): Code(s): K21.9 - Gastro-esophageal reflux disease without esophagitis Category: Medical Qualifiers: Esophagitis presence: without esophagitis Qualified Code(s): K21.9 - Gastro-esophageal reflux disease without esophagitis Plan: Avoid the foods that causes that usually spicy foods, tomato products, juices, coffee, soda and foods that your sensitive to. After eating do not lie down, allow 3-4 hours before in lie down. And keep the head of bed above 30 degrees to avoid the acid from going up. (6) Obesity: Code(s): E66.9 - Obesity, unspecified Category: Medical Qualifiers: Obesity classification: adult class 1 (BMI 30 - 34.9) Serious obesity comorbidity presence: without serious comorbidity Body mass index: BMI 31.0-31.9 Obesity type: due to excess calories Qualified Code(s): E66.811 - Obesity, class 1; E66.09 - Other obesity due to excess calories; Z68.31 - Body mass index [BMI] 31.0-31.9, adult Plan: Diet and exercise (7) Obsessive compulsive disorder: Code(s): F42.9 - Obsessive-compulsive disorder, unspecified Category: Medical Qualifiers: Obsessive-compulsive disorder type: unspecified Qualified Code(s): F42.9 - Obsessive-compulsive disorder, unspecified Plan: Continue to follow-up with psychiatry and counseling Orders: Orders Influenza [id number] Immunization Today Z23 - Encounter for immunization Medications: New Fluarix Triv [id number] (PF) (flu vacc [id number] 6mos up(PF)) 0.5 mL IM ONCE 0.5 mL 0RF NS Z23 - Encounter for immunization doxylamine-dextromethorphan 3.125-7.5 mg/5 mL (Robitussin Nighttime Cough DM) 5 mL PO .Q 4 hours 118 mL 0RF acetaminophen ER (Tylenol 8 Hour) 650 mg PO Q8H PRN 30 tabs 0RF pain and temp > 99
== END 2024-08-15 14:35 | disposition home or self-care (01) ==
PROVIDERS: PCP Internal Medicine; Visit Provider Internal Medicine
DX: K29.70 Gastritis, unspecified, without bleeding (principal); K31.7 Polyp of stomach and duodenum; Z12.11 Encounter for screening for malignant neoplasm of colon; M25.511 Pain in right shoulder; M25.512 Pain in left shoulder; K21.9 Gastro-esophageal reflux disease without esophagitis; E66.811 Obesity, class 1; E66.09 Other obesity due to excess calories; Z68.31 Body mass index [BMI] 31.0-31.9, adult; F42.9 Obsessive-compulsive disorder, unspecified

== ENCOUNTER → 2024-08-15 14:01 | Outpatient (BNVA) | payer MEDICARE, MEDICAID, SELFPAY | PROVIDERS: PCP Internal Medicine; Visit Provider Internal Medicine | DX: K29.70 Gastritis, unspecified, without bleeding (principal); K21.9 Gastro-esophageal reflux disease without esophagitis; M25.511 Pain in right shoulder; M25.512 Pain in left shoulder; E66.811 Obesity, class 1; E66.09 Other obesity due to excess calories; Z68.31 Body mass index [BMI] 31.0-31.9, adult; F42.9 Obsessive-compulsive disorder, unspecified; Z71.3 Dietary counseling and surveillance | CPT/HCPCS: 96127; 99212 ==

== ENCOUNTER 2024-09-28 13:31 | Outpatient (AMB) | payer MEDICARE, MEDICAID, SELFPAY ==
[2024-09-28 14:00] VITALS: BP 130/80; PULSE 78; O2SAT 98; BMI 35.3
--- NOTE | 2024-09-28 14:00 | A.OFFPC_ITS ---
Vital Signs 09/28/24 14:00 Height 5 ft 8 in Weight 232 lb BMI 35.3 BP 130/80 Blood Pressure Location Lt brachial Position Sitting Pulse 78 Pulse Source Pulse Oximeter Pulse Oximetry (%) 98 Oxygen Delivery Method Room Air Intake Visit Reasons: Annual Exam Allergies PCN Allergy (Unknown, Uncoded 09/28/24 14:00) oral swelling Medication List - Last Reconciled 09/28/24 by Jenni Platt MD acetaminophen ER (Tylenol 8 Hour) 650 mg PO Q8H PRN buspirone 20 mg PO BID doxylamine-dextromethorphan 3.125-7.5 mg/5 mL (Robitussin Nighttime Cough DM) 5 mL PO .Q 4 hours fluoxetine 40 mg PO DAILY guanfacine ER 4 mg PO QPM omeprazole 20 mg PO DAILY risperidone (Risperdal) 1 mg PO BEDTIME simvastatin 20 mg PO BEDTIME Tobacco use date assessed: 09/28/24 Dental Screening Dental Screen Date: 09/28/24 Did you have a dental visit in the last 12 months?: Yes Did you have a dental problem in the last 6 months where you did not have access to dental care?: No Was dental information given to patient?: Patient has dentist HPI Annual Exam HPI Details The patient is a 43-year-old male presenting with concerns related to weight gain, medication review, and gastrointestinal health. He has gained 12 pounds over the past month and a half, currently weighing 230 pounds, with a noted lack of exercise and excessive caloric intake, particularly from carbohydrates. The patient has reported reduced physical activity and insufficient hydration. His dietary habits include frequent consumption of high- carbohydrate foods, contributing to the weight gain. He was diagnosed with gastroesophageal reflux disease, for which he takes omeprazole. Additionally, the patient is undergoing treatment for hyperlipidemia, with a prescription for cholesterol medication. Constipation was noted recently as well. The patient has a scheduled gastroenterology appointment to evaluate for colon cancer screening. - Scheduled blood work for cholesterol m anagement; advised to have fasting blood work annually. - Flu shot has been administered; no COV ID-19 vaccination discussed. - Tetanus shot up to date. - Advised weight management through incr eased physical activity and dietary adjustments. - Occasional alcohol consumption, approx imately two drinks during monthly social events. - No smoking; no recreational drug use. - Lacks regular physical activity. - Current diet includes high-carbohydrat e intake; efforts to reduce caloric intake to be initiated. - Constitutional: Denies dizziness or sy ncope. - Respiratory: Denies shortness of breat h and chest pain. - Gastrointestinal: Reports occasional c oughing while eating; recent constipation. - Genitourinary: Denies dysuria; reports nocturia once per night. - Neurological: Denies headaches or visi on changes; occasional redness in one eye due to rubbing. - Hematologic/Lymphatic: No history of b leeding issues reported. [facility] Medical History (Updated 08/15/24 @ 14:18 by Jenni Platt MD) Physical exam, annual COVID-19 virus infection Obesity Physical exam External hemorrhoids Surgical History No pertinent past surgical history Family History Father History of colon cancer Mother History of colon polyps Substance use disorder Mental health disorder Social History (Updated 09/28/24 @ 14:37 by Jenni Platt MD) Housing: Other Housing Other:: Residential Alcohol intake: never Comment: once Q months 2 drinks Patient Tobacco Use Status: Never used Tobacco Tobacco use type: Cigarette e-Cigarette/Vaping Use: Never Used Second Hand Smoke Exposure: No service: No Current occupational status: disabled Cognitive needs: No Hearing needs: No Vision needs: No Questionnaire PHQ-9 Over the last 2 weeks, how often have you been bothered by any of the following problems? 1. Little interest or pleasure in doing things: not at all 2. Feeling down, depressed, or hopeless: not at all 3. Trouble falling or staying asleep, or sleeping too much: not at all 4. Feeling tired or having little energy: not at all 5. Poor appetite or overeating: not at all 6. Feeling bad about yourself - or that you are a failure or have let yourself or your family down: not at all 7. Trouble concentrating on things, such as reading the newspaper or watching television: not at all 8. Moving or speaking so slowly that other people could have noticed. Or the opposite - being so fidgety or restless that you have been moving around a lot more than usual: not at all 9. Thoughts that you would be better off or of hurting yourself in some way: not at all Total score: 0 Depression Screening Interpretation: Negative Depression Screening Done: Yes Source: Developed by Drs. Abel Malone, Flor Malone, Dewayne Sandoval and colleagues, with an educational real from [employer]. Thrive Questionnaire Date Thrive assessed: 09/28/24 I am a: Patient What is your living situation today?: I have a steady place to live Within the past 12 months, did the food you bought not last and you didn't have the money to get more?: I choose not to answer this question Within the past 12 months, did you worry whether your food would run out before you got money to buy more?: I choose not to answer this question Do you have trouble paying for medicines?: I choose not to answer this question Do you have trouble getting transportation to medical appointments?: I choose not to answer this question Do you have trouble paying your heating and electricity bill?: I choose not to answer this question Do you have trouble taking care of your child, family member or friend?: I choose not to answer this question Do you have trouble with day-to-day activities such as bathing, preparing meals, shopping, managing finances, etc.?: I choose not to answer this question Are you currently unemployed and looking for a job?: I choose not to answer this question Are you interested in more education?: I choose not to answer this question Please select the resources that you would like help with: None Currently or been in a relationship where the following occur: I choose not to answer THRIVE Score: 0 AUDIT C Alcohol Use Questionnaire (AUDIT-C) 1. How often do you have a drink containing alcohol?: Never 3. How often do you have six or more drinks on one occasion?: Never Total Score: 0 DREA-7 AMB Questionnaire DREA-7 Date DREA - 7 assessed: 09/28/24 Feeling nervous, anxious, or on edge: 0 = Not at all Not being able to stop or control worryin = Not at all Worrying too much about different things: 0 = Not at all Trouble relaxin = Not at all Being so restless that it is hard to sit still: 0 = Not at all Becoming easily annoyed or irritable: 0 = Not at all Feeling afraid as if something awful might happen: 0 = Not at all Total DREA-7 score (0-4 normal; 5-9 mild; 10-14 moderate; 15-21 severe): 0 Source: Developed by Drs. Abel Malone, Flor Malone, Dewayne Sandoval and colleagues, with an educational real from [employer]. Review of Systems Const Denies poor appetite and Denies weakness Eyes Denies no additional complaints ENT Reports Normal hearing present, Denies dizziness, Denies nasal congestion, Denies tinnitus and Denies sore throat Card Denies chest pain, Denies syncope, Denies rapid heart rate and Denies dyspnea Resp Denies cough and Denies dyspnea GI Denies change in stool character, Reports constipation, Denies diarrhea, Denies nausea and Denies vomiting Denies dysuria and Denies urinary frequency Neuro Reports Normal hearing present, Denies confusion, Denies dizziness, Denies syncope and Denies weakness Psych Denies confusion Physical exam (Primary Care) Vital Signs: Last Vital Signs Pulse 78 09/28/24 14:00 BP 130/80 09/28/24 14:00 Pulse Ox 98 09/28/24 14:00 Oxygen Delivery Method Room Air 09/28/24 14:00 BMI result Body Mass Index 35.3 Tobacco/Smoking Status: Tobacco use Status Tobacco use date assessed 09/28/24 09/28/24 14:05 Patient Tobacco Use Status Never used Tobacco 09/28/24 14:37 Tobacco use type Cigarette 09/28/24 14:37 e-Cigarette/Vaping Use Never Used 09/28/24 14:37 PHQ-9: PHQ-9 Score PHQ-9: Total score 0 09/28/24 14:32 Depression Screening Interpretation: Negative Thrive Assessment: Date of Thrive Assessment Date Thrive assessed 09/28/24 09/28/24 14:05 Currently or been in a relationship where the following occur: I choose not to answer Const General: alert and awake; No confusion Orientation/consciousness: No confusion HENMT Head: Yes normocephalic Ears: external ears normal and TM's normal bilaterally Face and sinus: Yes normal facial exam Mouth: moist mucous membranes Throat: Yes tonsils normal Eyes Conjunctivae: conjunctivae normal Pupils: Equal, round and reactive pupils present and Pupil accommodation reflex normal Direct Ophthalmoscopy: normal light reflex Neck Neck: No lymphadenopathy Thyroid: Thyroid normal Chest Chest palpation & inspection: normal inspection of the chest Resp Effort & Inspection: normal respiratory effort and no audible wheezes Auscultation: clear to auscultation bilaterally, no crackles, no wheezes and lung sounds not diminished Cardio Rate: regular rate Rhythm: regular rhythm Peripheral pulses: radial pulses present and dorsalis pedis present GI Palpation (GI): no masses Auscultation: normal bowel sounds and normoactive bowel sounds Rectal Exam - Male: Yes deferred Skin General skin exam: no rashes or lesions noted Rashes: no rashes Neuro General: deep tendon reflexes 2+ bilaterally and No confusion Cranial nerves: Yes Equal, round and reactive pupils present, Yes Midline tongue present, Yes Normal hearing present and Yes Ability to bilaterally elevate shoulders present Cognition (Neuro): normal cognition Gait exam (Neuro): Normal gait present Motor exam (neuro): 5/5 motor strength present throughout Deep tendon reflexes (DTR's): Right brachioradialis reflex intensity grade: 2+, Left brachioradialis reflex intensity grade: 2+, Right patellar reflex intensity grade: 2+ and Left patellar reflex intensity grade: 2+ Extrem General: No edema Coding Level of Care Code Est Pt Prev Care 40-64y(27174) Diagnoses Physical exam, annual Z00.00 Colon cancer screening Z12.11 Hyperlipidemia E78.5 Class 1 obesity due to excess calories without serious comorbidity with body mass index (BMI) of 31.0 to 31.9 in adult E66.811; E66.09; Z68.31 Body mass index: BMI 31.0-31.9 Obesity classification: adult class 1 (BMI 30 - 34.9) Obesity type: due to excess calories Serious obesity comorbidity presence: without serious comorbidity Obsessive-compulsive disorder, unspecified type F42.9 Obsessive-compulsive disorder type: unspecified Assessment & Plan Assessment & Plan (1) Physical exam, annual: Code(s): Z00.00 - Encounter for general adult medical examination without abnormal findings Category: Medical (2) Colon cancer screening: Code(s): Z12.11 - Encounter for screening for malignant neoplasm of colon Category: Medical (3) Hyperlipidemia: Code(s): E78.5 - Hyperlipidemia, unspecified Category: Medical (4) Obesity: Code(s): E66.9 - Obesity, unspecified Category: Medical Qualifiers: Body mass index: BMI 31.0-31.9 Obesity classification: adult class 1 (BMI 30 - 34.9) Obesity type: due to excess calories Serious obesity comorbidity presence: without serious comorbidity Qualified Code(s): E66.811 - Obesity, class 1; E66.09 - Other obesity due to excess calories; Z68.31 - Body mass index [BMI] 31.0-31.9, adult (5) Obsessive compulsive disorder: Code(s): F42.9 - Obsessive-compulsive disorder, unspecified Category: Medical Qualifiers: Obsessive-compulsive disorder type: unspecified Qualified Code(s): F42.9 - Obsessive-compulsive disorder, unspecified Plan - Continue current gastroesophageal reflux disease management with omeprazole. - Monitor hyperlipidemia with scheduled fasting blood work; ensure annual check- ups. - Advise increased hydration and dietary adjustments to address weight gain and constipation. - Encourage regular physical activity to support weight management and overall health. - Proceed with scheduled gastroenterology consultation for further evaluation and potential colon cancer screening. - Review medication regimen for potential adjustments as needed. We discussed the patient's weight gain, attributing it to high carbohydrate intake and lack of exercise. The patient understands the need for lifestyle modifications, including increased physical activity and hydration. I reviewed the importance of maintaining current medication for gastroesophageal reflux disease and hyperlipidemia and the necessity of annual check-ups. We discussed the upcoming gastroenterology appointment and the rationale for screening. I emphasized regular follow-up and monitoring of his overall health and adherence to recommended lifestyle changes. We addressed potential risks associated with the patient's current health issues and the benefits of maintaining regular med ica evaluations. - Increase physical activity to at least three times a week. - Reduce carbohydrate intake, avoiding simultaneous consumption of pasta, rice, bread, and potatoes. - Stay hydrated by drinking adequate amounts of water daily. - Follow up with scheduled gastroenterology appointment and complete fasting blood work. - Monitor weight and report any significant changes at the next visit. - Maintain current medication regimen and consult if experiencing side effects. - Seek immediate care for any acute symptoms or concerns. - Ensure to keep up with preventive health measures, including vaccinations and screenings. Orders: Orders Comprehensive Met. Panel Today E78.5 - Hyperlipidemia, unspecified Thyroid Stimulating Hormone Today E78.5 - Hyperlipidemia, unspecified Vitamin B12 and Folate Today E78.5 - Hyperlipidemia, unspecified Complete Blood Count Auto Diff Today E78.5 - Hyperlipidemia, unspecified Free T4 (Free Thyroxine) Today E78.5 - Hyperlipidemia, unspecified Lipid Panel Today E78.00 - Pure hypercholesterolemia, unspecified, E78.5 - Hyperlipidemia, unspecified
== END 2024-09-28 14:54 | disposition home or self-care (01) ==
PROVIDERS: PCP Internal Medicine; Visit Provider Internal Medicine
DX: Z00.00 Encounter for general adult medical examination without abnormal findings (principal); Z12.11 Encounter for screening for malignant neoplasm of colon; E66.811 Obesity, class 1; Z68.31 Body mass index [BMI] 31.0-31.9, adult; E78.5 Hyperlipidemia, unspecified; F42.9 Obsessive-compulsive disorder, unspecified

== ENCOUNTER → 2024-09-28 13:31 | Outpatient (BNVA) | payer MEDICARE, MEDICAID, SELFPAY | PROVIDERS: PCP Internal Medicine; Visit Provider Internal Medicine | DX: Z00.00 Encounter for general adult medical examination without abnormal findings (principal); E66.811 Obesity, class 1; F42.9 Obsessive-compulsive disorder, unspecified; E78.00 Pure hypercholesterolemia, unspecified; Z68.31 Body mass index [BMI] 31.0-31.9, adult | CPT/HCPCS: 96127; 99396 ==

== ENCOUNTER 2024-09-30 07:49 | Outpatient (REF) | payer MEDICARE, MEDICAID, SELFPAY ==
[2024-09-30 08:04] LABS: MANUAL DIFF FLAG NO
[2024-09-30 08:35] LABS: Eosinophils Absolute Auto 0.1 X10*3/uL (0.0-0.4); Eosinophils Percent Auto 2.6 % (0-4); Hematocrit 44.5 % (42.0-52.0); Hemoglobin 15.3 g/dl (14.0-18.0); Imm Gran Abs Auto 0.01 X10*3/uL (0.00-0.03); Imm Gran Pct Auto 0.2 % (0.0-0.4); Lymphocytes Absolute Auto 1.6 X10*3/uL (1.2-4.9); Lymphocytes Percent Auto 37.4 % (20-40); Mean Corpuscular HGB Conc 34.4 g/dl (31.0-36.0); Mean Corpuscular Volume 87.3 fL (80.0-98.0); Mean Platelet Volume 10.2 fL (9.4-12.4); Monocytes Absolute Auto 0.5 X10*3/uL (0.1-1.2); Monocytes Percent Auto 12.4 % (2-11); Neutrophils Percent Auto 46.4 % (45-73); Platelet Count 193 X10*3/uL (160-400); Red Cell Distribution Width 12.4 % (11.0-16.0); White Blood Count 4.2 X10*3/uL (4.8-10.8)
[2024-09-30 09:18] LABS: Alanine Aminotransferase 119 U/L (0-40); Albumin Level 4.6 g/dL (3.5-5.0); Alkaline Phosphatase 66 U/L (39-117); Anion Gap 11 (12-20); Aspartate Amino Transferase 60 U/L (5-37); Bilirubin Total 0.8 mg/dL (0.0-1.0); Blood Urea Nitrogen 12 mg/dL (9-16); Calcium 8.7 mg/dL (8.4-10.2); Carbon Dioxide 28 mmol/L (22-29); Chloride 108 mmol/L (96-108); Cholesterol 191 mg/dL (<200); Estimated Glomerular Filt Rate > 60; Glucose Random 145 mg/dL (60-115); HDL Cholesterol 54 mg/dL (>40); LDL Cholesterol Calculated 104 mg/dL (<100); Potassium 3.8 mmol/L (3.3-5.1); Sodium 143 mmol/L (135-145); Total Protein 7.1 g/dL (6.5-8.0); Triglycerides 167 mg/dL (<150)
[2024-09-30 09:34] LABS: Free T4 (Free Thyroxine) 1.04 ng/dL (0.71-1.85); Thyroid Stimulating Hormone 1.79 uIU/mL (0.32-4.0)
[2024-09-30 10:10] LABS: Folate 11.9 ng/mL (> or = 4.0); Vitamin B12 450 pg/mL (200-900)
== END 2024-09-30 07:50 | disposition home or self-care (01) ==
LOC: HO.LAB 07:49
PROVIDERS: PCP Internal Medicine; Visit Provider Internal Medicine
DX: E78.5 Hyperlipidemia, unspecified (principal); E78.00 Pure hypercholesterolemia, unspecified
CPT/HCPCS: 36415; 80053; 80061; 82607; 82746; 84439; 84443; 85025

== ENCOUNTER 2024-10-19 10:16 | Outpatient (REF) | payer MEDICARE, MEDICAID, SELFPAY | END 2024-10-19 10:17 | disposition home or self-care (01) | LOC: HO.XRAY 10:16 | PROVIDERS: PCP Internal Medicine; Visit Provider Internal Medicine | DX: Z13.89 Encounter for screening for other disorder (principal) ==

== ENCOUNTER 2025-01-10 08:27 | Outpatient (REF) | payer MEDICARE, SELFPAY ==
--- NOTE | ~2025-01-10 | FL_ITS ---
EXAMINATION: XR UPPER GI SERIES WITH SMALL BOWEL CLINICAL INFORMATION: Dysphagia COMPARISON: None available. TECHNIQUE: Routine upper GI air contrast study was performed in upright view. FINDINGS: Following oral administration of thick barium and effervescent granules there is normal propagation of bolus from the oral cavity through the pharynx and esophagus without any evidence of obstruction, narrowing or stricture . On placing patient in supine and prone lying the course, caliber and peristalsis of the stomach, duodenal bulb and this CT is normal. The mucosal pattern of stomach, duodenum bulb and this CT is normal. Mild gastroesophageal reflux without hiatal hernia the mucosal pattern of the stomach, duodenal bulb and this CT is normal. FLUOROSCOPY TIME: 1 minute 48 seconds. DOSE AREA PRODUCT: 20 and 50 uGy-m2 (microgray-meter squared) FL/FL upper GI w air w Ba Swallow IMPRESSION: Mild gastroesophageal reflux without hiatal hernia. Otherwise rest of the upper GI exam is unremarkable. Electronically signed by: Houston Hay MD 01/10/2025 10:03 AM EDT
== END 2025-01-10 08:28 | disposition home or self-care (01) ==
LOC: HO.XRAY 08:27
PROVIDERS: PCP Internal Medicine; Visit Provider Internal Medicine
DX: R13.10 Dysphagia, unspecified (principal)
CPT/HCPCS: 74246

== ENCOUNTER → 2025-01-10 08:29 | Outpatient (BNV) | payer MEDICARE, SELFPAY | PROVIDERS: PCP Internal Medicine; Visit Provider Radiology Diagnostic Radiology | DX: R13.10 Dysphagia, unspecified (principal) | CPT/HCPCS: 74246 ==

== ENCOUNTER 2025-03-15 12:15 | Outpatient (AMB) | payer MEDICARE, MEDICAID, SELFPAY ==
--- NOTE | 2025-03-15 12:26 | MHC.OFFWIV ---
Intake Vital Signs 03/15/25 12:30 Height 5 ft 8 in Weight 232 lb BMI 35.3 BP 132/80 Blood Pressure Location Lt brachial Position Sitting Pulse 99 Pulse Source Pulse Oximeter Temp 98.0 F Temp Source Oral Pulse Oximetry (%) 97 Intake Visit Reasons: EP Blistering sunburn Intake Note: pt is here bilateral sunburn thats blistering on top of feet. Patient Tobacco Use Status: Never used Tobacco Allergies PCN Allergy (Unknown, Uncoded 09/28/24 14:00) oral swelling Do you need a note to return to daycare/school/sports/work: Yes HPI HPI Comments History of Present Illness Details 44 y/o Male patient who presents to the walk in clinic with c/o Sun Burn B/L Feet. [place] and he did not apply sunscreen to his Lower extremities. [facility] Medical History (Updated 03/15/25 @ 12:43 by Kianna Macdonald NP) Second degree sunburn Rectal bleeding Otitis externa Physical exam, annual Shoulder pain Colon cancer screening Cough Gastritis High blood sugar COVID-19 virus infection Obesity Physical exam External hemorrhoids Surgical History No pertinent past surgical history Family History Father History of colon cancer Mother History of colon polyps Substance use disorder Mental health disorder Social History (Updated 09/28/24 @ 14:37 by Jenni Platt MD) Housing: Other Housing Other:: Senior Living Alcohol intake: never Comment: once Q months 2 drinks Patient Tobacco Use Status: Never used Tobacco Tobacco use type: Cigarette e-Cigarette/Vaping Use: Never Used Second Hand Smoke Exposure: No service: No Current occupational status: disabled Cognitive needs: No Hearing needs: No Vision needs: No Review of Systems Const All systems reviewed & are unremarkable except as noted in HPI and below Physical Exam Vital Signs: Last Vital Signs Temp 98.0 F 03/15/25 12:30 Pulse 99 03/15/25 12:30 BP 132/80 03/15/25 12:30 Pulse Ox 97 03/15/25 12:30 BMI result Body Mass Index 35.3 Const General: no acute distress Nutritional Appearance: overweight Orientation/consciousness: patient oriented x3 Neuro General: patient oriented x3, gait normal and moves all extremities Extrem Right lower extremity: foot Details: normal capillary refill, tenderness Location: of the dorsal foot and toes with normal ROM Left lower extremity: foot Details: toes with normal ROM and no edema; no tenderness Ankle/foot/toe images:  1. First degree burn/superficial erythematous, dry and intact skin, no blisters. 2. Second degree barnett, blistering erythematous draining clear fluid. TTP Assessment & Plan Assessment & Plan (1) Second degree sunburn: Code(s): L55.1 - Sunburn of second degree Plan: Dressed the left Foot with Xeroform Dressing, 4x4 Gauze and Kerlix roll Advised to change dressings BID until healed. Acetaminophen for pain relief Apply Aquaphor/Vaseline to the right foot. Advised Sunscreen when outside. Medications: New bismuth tribrom-petrolatum,wh 5 X 9 (Xeroform Petrolatum Dressing) As directed 50 ea 1RF L55.1 - Sunburn of second degree bismuth tribrom-petrolatum,wh 5 X 9 (Xeroform Petrolatum Dressing) As directed 50 ea 1RF L55.1 - Sunburn of second degree Discontinued doxylamine-dextromethorphan 3.125-7.5 mg/5 mL (Robitussin Nighttime Cough DM) Discontinued Reason: Patient Completed Course 5 mL PO .Q 4 hours 118 mL 0RF Coding Level of Care Code Est Pt Level 4 (31018) Diagnoses Second degree sunburn L55.1 Time Spent (min) 20
[2025-03-15 12:30] VITALS: BP 132/80; PULSE 99; TEMP 36.7; O2SAT 97; BMI 35.3
== END 2025-03-15 13:01 | disposition home or self-care (01) ==
PROVIDERS: PCP Internal Medicine; Visit Provider Nurse Practitioner Family
DX: L55.1 Sunburn of second degree (principal)

== ENCOUNTER → 2025-03-15 12:15 | Outpatient (BNVA) | payer MEDICARE, SELFPAY | PROVIDERS: PCP Internal Medicine; Visit Provider Nurse Practitioner Family | DX: L55.1 Sunburn of second degree (principal) | CPT/HCPCS: 99212 ==

== ENCOUNTER 2025-06-04 11:09 | Outpatient (REF) | payer MEDICARE, MEDICAID, SELFPAY ==
--- NOTE | ~2025-06-04 | XR_ITS ---
EXAMINATION: XR SHOULDER 2 OR MORE VIEWS LEFT HISTORY: M25.512 - Pain in left shoulder COMPARISON: Comparison is made with the prior examination dated 05/10/2024. FINDINGS: Four views of the shoulder are submitted. Osseous mineralization is normal. There is no fracture or dislocation. The glenohumeral joint is maintained. There is mild narrowing of the AC joint. The soft tissues are unremarkable. XR/XR shoulder LT min 2V IMPRESSION: Mild narrowing of the AC joint. Electronically signed by: Abel Abdi MD 06/04/2025 12:51 PM EDT
== END 2025-06-04 11:10 | disposition home or self-care (01) ==
LOC: HO.XRAY 11:09
PROVIDERS: PCP Internal Medicine; Visit Provider Internal Medicine
DX: E11.65 Type 2 diabetes mellitus with hyperglycemia (principal); E78.5 Hyperlipidemia, unspecified; K21.9 Gastro-esophageal reflux disease without esophagitis; R79.89 Other specified abnormal findings of blood chemistry; M25.512 Pain in left shoulder
CPT/HCPCS: 73030; 83036; 99212

== ENCOUNTER 2025-06-04 11:09 | Outpatient (AMB) | payer MEDICARE, MEDICAID, SELFPAY ==
[2025-06-04 11:17] VITALS: BP 128/76; PULSE 82; O2SAT 98; BMI 34.8
--- NOTE | 2025-06-04 11:17 | A.OFFPC_ITS ---
Vital Signs 06/04/25 11:17 Height 5 ft 8 in Weight 229 lb BMI 34.8 BP 128/76 Blood Pressure Location Lt brachial Position Sitting Pulse 82 Pulse Source Pulse Oximeter Pulse Oximetry (%) 98 Oxygen Delivery Method Room Air Intake Visit Reasons: obesity, cholesterol Allergies PCN Allergy (Unknown, Uncoded 06/04/25 11:17) oral swelling Medication List - Last Reconciled 06/04/25 by Jenni Platt MD acetaminophen ER (Tylenol 8 Hour) 650 mg PO Q8H PRN bismuth tribrom-petrolatum,wh 5 X 9 (Xeroform Petrolatum Dressing) As directed bismuth tribrom-petrolatum,wh 5 X 9 (Xeroform Petrolatum Dressing) As directed buspirone 30 mg PO BID fluoxetine 40 mg PO QAM guanfacine ER 4 mg PO QPM omeprazole 20 mg PO DAILY risperidone 0.5 mg PO DAILY simvastatin 20 mg PO BEDTIME trazodone 50 mg PO BEDTIME Tobacco use date assessed: 09/28/24 Dental Screening Dental Screen Date: 09/28/24 [facility] Medical History (Updated 06/04/25 @ 12:26 by Jenni lPatt MD) Colon cancer screening Second degree sunburn Rectal bleeding Otitis externa Physical exam, annual Shoulder pain Cough Gastritis High blood sugar COVID-19 virus infection Obesity Physical exam External hemorrhoids Surgical History No pertinent past surgical history Family History Father History of colon cancer Mother History of colon polyps Substance use disorder Mental health disorder Social History (Updated 09/28/24 @ 14:37 by Jenni Platt MD) Housing: Other Housing Other:: Nursing Home Alcohol intake: never Comment: once Q months 2 drinks Patient Tobacco Use Status: Never used Tobacco Tobacco use type: Cigarette e-Cigarette/Vaping Use: Never Used Second Hand Smoke Exposure: No service: No Current occupational status: disabled Cognitive needs: No Hearing needs: No Vision needs: No Questionnaire PHQ-9 Over the last 2 weeks, how often have you been bothered by any of the following problems? 1. Little interest or pleasure in doing things: not at all 2. Feeling down, depressed, or hopeless: not at all 3. Trouble falling or staying asleep, or sleeping too much: several days 4. Feeling tired or having little energy: several days 5. Poor appetite or overeating: not at all 6. Feeling bad about yourself - or that you are a failure or have let yourself or your family down: not at all 7. Trouble concentrating on things, such as reading the newspaper or watching television: not at all 8. Moving or speaking so slowly that other people could have noticed. Or the opposite - being so fidgety or restless that you have been moving around a lot more than usual: not at all 9. Thoughts that you would be better off or of hurting yourself in some way: not at all Total score: 2 Depression Screening Interpretation: Positive Depression Screening Done: Yes Source: Developed by Drs. Abel Malone, Flor Malone, Dewayne Sandoval and colleagues, with an educational real from [employer]. Thrive Questionnaire Date Thrive assessed: 09/28/24 I am a: Patient What is your living situation today?: I have a steady place to live Within the past 12 months, did the food you bought not last and you didn't have the money to get more?: I choose not to answer this question Within the past 12 months, did you worry whether your food would run out before you got money to buy more?: I choose not to answer this question Do you have trouble paying for medicines?: I choose not to answer this question Do you have trouble getting transportation to medical appointments?: I choose not to answer this question Do you have trouble paying your heating and electricity bill?: I choose not to answer this question Do you have trouble taking care of your child, family member or friend?: I choose not to answer this question Do you have trouble with day-to-day activities such as bathing, preparing meals, shopping, managing finances, etc.?: I choose not to answer this question Are you currently unemployed and looking for a job?: I choose not to answer this question Are you interested in more education?: I choose not to answer this question Please select the resources that you would like help with: None Currently or been in a relationship where the following occur: I choose not to answer THRIVE Score: 0 DREA-7 AMB Questionnaire DREA-7 Date DREA - 7 assessed: 09/28/24 Source: Developed by DrsIrma Malone, Flor Malone, Dewayne Sandoval and colleagues, with an educational real from [employer]. Physical exam (Primary Care) Vital Signs: Last Vital Signs Pulse 82 06/04/25 11:17 BP 128/76 06/04/25 11:17 Pulse Ox 98 06/04/25 11:17 Oxygen Delivery Method Room Air 06/04/25 11:17 BMI result Body Mass Index 34.8 Tobacco/Smoking Status: Tobacco use Status Tobacco use date assessed 09/28/24 06/04/25 11:18 Patient Tobacco Use Status Never used Tobacco 06/04/25 11:18 Tobacco use type Cigarette 06/04/25 11:18 e-Cigarette/Vaping Use Never Used 06/04/25 11:18 PHQ-9: PHQ-9 Score PHQ-9: Total score 2 06/04/25 12:13 Depression Screening Interpretation: Positive Thrive Assessment: Date of Thrive Assessment Date Thrive assessed 09/28/24 06/04/25 11:18 Currently or been in a relationship where the following occur: I choose not to answer Const General: alert; No acute distress Eyes Conjunctivae: conjunctivae normal Resp Auscultation: clear to auscultation bilaterally Cardio Rate: regular rate Rhythm: regular rhythm GI Inspection: Yes normal to inspection Extrem General: Yes normal to inspection and No edema Results AMB Hemoglobin A1c AMB Hemoglobin A1c 7.1 % Last Edit by Breanne Kessler CMA on 06/04/25 12 :14 Results Reviewed Results Reviewed: Laboratory Last Values Hgb A1c (Clinic) 7.1 % (4.0-6.0) H 06/04/25 11:18 Coding Level of Care Code Est Pt Level 4 (00790) Diagnoses Type 2 diabetes mellitus with hyperglycemia E11.65 Hyperlipidemia E78.5 Gastroesophageal reflux disease without esophagitis K21.9 Esophagitis presence: without esophagitis Colon cancer screening Z12.11 LFT elevation R79.89 Left shoulder pain M25.512 Assessment & Plan Assessment & Plan (1) Type 2 diabetes mellitus with hyperglycemia: Code(s): E11.65 - Type 2 diabetes mellitus with hyperglycemia Category: Medical Plan: Decrease the amount of carbohydrate intake, pasta, bread, rice and potatoes are all sugar and that is aside from all the sweet stuff, remember that fruits are good but they are Sweet also. Hemoglobin A1c goal of less than 6.5. Patient is diet controlled (2) Hyperlipidemia: Code(s): E78.5 - Hyperlipidemia, unspecified Category: Medical Plan: Avoid fried foods, chicken skin, eggs, butter margarine, pastries and meat. Be it pork or beef they have a lot of cholesterol patient needs to get retested for cholesterol LDL goal of less than 100 on simvastatin 20 mg at bedtime (3) GERD (gastroesophageal reflux disease): Code(s): K21.9 - Gastro-esophageal reflux disease without esophagitis Category: Medical Qualifiers: Esophagitis presence: without esophagitis Qualified Code(s): K21.9 - Gastro-esophageal reflux disease without esophagitis Plan: Avoid the foods that causes that usually spicy foods, tomato products, juices, coffee, soda and foods that your sensitive to. After eating do not lie down, allow 3-4 hours before in lie down. And keep the head of bed above 30 degrees to avoid the acid from going up. (4) Colon cancer screening: Code(s): Z12.11 - Encounter for screening for malignant neoplasm of colon Category: Medical Plan: Patient is reminded about colonoscopy (5) LFT elevation: Code(s): R79.89 - Other specified abnormal findings of blood chemistry Category: Medical Plan: Patient is advised to get ultrasound of the liver and repeat blood work (6) Left shoulder pain: Code(s): M25.512 - Pain in left shoulder Category: Medical Plan History of Present Illness The patient is a 44-year-old male presenting for a follow-up visit. The patient has a history of diabetes mellitus, with a hemoglobin A1c of 6.9% in September, which has increased to 7.1%. He is currently diet-controlled but will start on metformin due to the elevated A1c. The patient is advised to monitor blood glucose levels regularly and follow a diet low in carbohydrates and sugars. The patient has hypercholesterolemia with an LDL cholesterol level of 104 mg/dL, slightly above the target of less than 100 mg/dL. He is on simvastatin 20 mg at bedtime and advised to retest cholesterol levels. The patient has a history of gastroesophageal reflux disease (GERD) with mild symptoms confirmed by a barium swallow test. He was scheduled to see a drain tile machine operator but has not yet attended the appointment. The patient reports left shoulder pain, which is attributed to tendon inflammation. He recalls a fall during winter, which may have contributed to the pain. Physical therapy and an x-ray have been recommended. Health Maintenance - Colon cancer screening: Patient reminded to schedule a colonoscopy - Liver ultrasound: Recommended due to elevated liver enzymes - Blood glucose monitoring: Advised to check regularly - Eye examination: Recommended annually due to diabetes - Podiatry referral: Recommended for diabetic foot care - Physical therapy: Recommended for left shoulder tendon inflammation Social History - Exercise: Patient advised to exercise regularly, 20 minutes a day, to manage diabetes and overall health - Diet: Advised to follow a diet low in carbohydrates and sugars, emphasizing plant proteins and vegetables Review of Systems - Musculoskeletal: Reports left shoulder pain, denies pain on lifting or moving front, slight pain on specific maneuvers Physical Exam - Musculoskeletal: Left shoulder examined for pain, no pain on lifting or moving front, slight pain on specific maneuvers, tendon inflammation noted Results - Labs: Hemoglobin A1c 7.1%, LDL cholesterol 104 mg/dL, elevated liver enzymes - Imaging: Barium swallow test showed mild GERD Plan Patient was informed and verbally consented to the use of an ambient scribe for clinic note documentation during this visit. 1. Diabetes Mellitus The patient will start on metformin due to elevated hemoglobin A1c levels. Reg ular blood glucose monitoring is advised, with a goal to maintain hemoglobin A1c below 6.5%. Dietary modifications include reducing carbohydrate and sugar intake, and increasing physical activity to at least 20 minutes daily. 2. Hypercholesterolemia The patient is advised to continue simvastatin 20 mg at bedtime. A follow-up cholesterol test is recommended to achieve an LDL goal of less than 100 mg/dL. 3. Gastroesophageal Reflux Disease (Gerd) The patient is reminded to follow up with gastroenterology for further evaluation and management. Lifestyle modifications to manage GERD symptoms include dietary adjustments and avoiding triggers. 4. Tendon Inflammation Physical therapy is recommended to address left shoulder tendon inflammation. An x-ray is ordered to rule out any structural damage due to a previous fall. Discussion Notes During the visit, I discussed the patient's elevated hemoglobin A1c and the need to start metformin to better control diabetes. We reviewed the importance of regular blood glucose monitoring and dietary changes to manage diabetes effectively. I emphasized the need for follow-up with gastroenterology for GERD management and the importance of lifestyle modifications. We also discussed the plan for physical therapy and an x-ray for the left shoulder pain. Patient Instructions - Start taking metformin as prescribed to manage diabetes. - Monitor blood glucose levels regularly and aim for an A1c below 6.5%. - Follow a diet low in carbohydrates and sugars, and increase physical activity to at least 20 minutes daily. - Schedule a follow-up appointment with gastroenterology for GERD management. - Attend physical therapy sessions for left shoulder pain and complete the x-ray as ordered. Orders: Orders Hepatitis B,C Profile Today R7 - Other specified abnormal findings of blood chemistry Comprehensive Met. Panel Today R7 - Other specified abnormal findings of blood chemistry Free T4 (Free Thyroxine) Today R7. - Other specified abnormal findings of bl ood chemistry Thyroid Stimulating Hormone Today R7 - Other specified abnormal findings of blood chemistry AMB Hemoglobin A1c Today Z13.9 - Encounter for screening, unspecified Lipid Panel Today E78.00 - Pure hypercholesterolemia, unspecified, R7. - Other specified abnormal findings of blood chemistry US abdomen complete Today R7 - Other specified abnormal findings of blood chemistry PT Evaluation and Treatment Today M25.512 - Pain in left shoulder XR shoulder LT min 2V Today M25.512 - Pain in left shoulder Referrals Ophthalmology Referral E11.65 - Type 2 diabetes mellitus with hyperglycemia Podiatry Referral E11.65 - Type 2 diabetes mellitus with hyperglycemia [employer] Referral E11.65 - Type 2 diabetes mellitus with hyperglycemia Medications: New doxylamine-dextromethorphan 3.125-7.5 mg/5 mL (Robitussin Nighttime Cough DM) 5 mL PO .Q 4 hours PRN 118 mL 11RF cough R7 - Other specified abnormal findings of blood chemistry metformin 500 mg PO BIDWMEAL 60 tabs 3RF E11.65 - Type 2 diabetes mellitus with hyperglycemia blood sugar diagnostic (FreeStyle Lite Strips) As directed check the BS QD 100 ea 3RF E11.65 - Type 2 diabetes mellitus with hyperglycemia blood-glucose meter (FreeStyle Lite Meter kit) As directed 1 ea 0RF E11.65 - Type 2 diabetes mellitus with hyperglycemia lancets (FreeStyle Lancets) As directed check BS QD 100 ea 3RF E11.65 - Type 2 diabetes mellitus with hyperglycemia Changed From acetaminophen ER (Tylenol 8 Hour) 650 mg PO Q8H PRN 30 tabs 0RF pain and temp > 99 R7.89 - Other specified abnormal findings of blood chemistry To acetaminophen ER (Tylenol 8 Hour) and prn body aches 650 mg PO Q8H PRN 30 tabs 12RF pain and temp > 99 R79.89 - Other specified abnormal findings of blood chemistry Refilled acetaminophen ER (Tylenol 8 Hour) 650 mg PO Q8H PRN 30 tabs 0RF pain and temp > 99 R79.89 - Other specified abnormal findings of blood chemistry
== END 2025-06-04 12:30 | disposition home or self-care (01) ==
LOC: HO.HMCH 11:10
PROVIDERS: PCP Internal Medicine; Visit Provider Internal Medicine
DX: E11.65 Type 2 diabetes mellitus with hyperglycemia (principal); E78.5 Hyperlipidemia, unspecified; K21.9 Gastro-esophageal reflux disease without esophagitis; Z12.11 Encounter for screening for malignant neoplasm of colon; R79.89 Other specified abnormal findings of blood chemistry; M25.512 Pain in left shoulder; Z13.9 Encounter for screening, unspecified

== ENCOUNTER → 2025-06-04 12:40 | Outpatient (BNV) | payer MEDICARE, MEDICAID, SELFPAY | PROVIDERS: PCP Internal Medicine; Visit Provider Radiology Diagnostic Radiology | DX: M19.012 Primary osteoarthritis, left shoulder (principal) | CPT/HCPCS: 73030 ==

== ENCOUNTER 2025-07-19 09:16 | Outpatient (REF) | payer MEDICARE, MEDICAID, SELFPAY ==
--- NOTE | ~2025-07-19 | US_ITS ---
CLINICAL HISTORY: R79.89 - Other specified abnormal findings of blood chemistry US abdomen complete Comparison: None provided Findings: The pancreas and abdominal aorta are not well-visualized due to overlying bowel gas. The visualized portion of the IVC is normal in caliber. The liver is mildly enlarged in size with the right hepatic lobe measuring 18.1 cm in length. Hepatic echogenicity is increased. No focal hepatic mass is seen. There is no intrahepatic bile duct dilatation. The common duct is 2 mm in diameter. The gallbladder is normal. There is no sonographic Hart sign. The right kidney is 11.2 cm in length. The left kidney is 13.0 cm in length. The spleen is enlarged in size, measuring 15.6 cm in length. IMPRESSION: 1. Hepatic steatosis with mild hepatomegaly. 2. Splenomegaly. This document has been electronically signed by: Leia Henry on 07/20/2025 08:20:59
[2025-07-19 11:12] LABS: Alanine Aminotransferase 72 U/L (0-40); Albumin Level 4.7 g/dL (3.5-5.0); Alkaline Phosphatase 56 U/L (39-117); Anion Gap 11 (12-20); Aspartate Amino Transferase 37 U/L (5-37); Blood Urea Nitrogen 15 mg/dL (9-16); Calcium 8.8 mg/dL (8.4-10.2); Carbon Dioxide 28 mmol/L (22-29); Chloride 108 mmol/L (96-108); Cholesterol 142 mg/dL (<200); Estimated Glomerular Filt Rate > 60; HDL Cholesterol 45 mg/dL (>40); Potassium 4.0 mmol/L (3.3-5.1); Sodium 143 mmol/L (135-145); Total Protein 6.7 g/dL (6.5-8.0); Triglycerides 105 mg/dL (<150)
[2025-07-19 11:17] LABS: Free T4 (Free Thyroxine) 0.96 ng/dL (0.71-1.85); Thyroid Stimulating Hormone 1.44 uIU/mL (0.32-4.0)
== END 2025-07-19 09:17 | disposition home or self-care (01) ==
LOC: HO.HMGCX 09:16
PROVIDERS: PCP Internal Medicine; Visit Provider Internal Medicine
DX: R79.89 Other specified abnormal findings of blood chemistry (principal); E78.00 Pure hypercholesterolemia, unspecified
CPT/HCPCS: 36415; 76700; 80053; 80061; 84439; 84443; 86704; 86706; 87340

== ENCOUNTER → 2025-07-19 09:16 | Outpatient (BNV) | payer MEDICARE, MEDICAID, SELFPAY | PROVIDERS: PCP Internal Medicine; Visit Provider Radiology Vascular & Interventional Radiology | DX: R79.89 Other specified abnormal findings of blood chemistry (principal) | CPT/HCPCS: 76700 ==

== ENCOUNTER 2025-07-30 09:49 | Outpatient (AMB) | payer MEDICARE, MEDICAID, SELFPAY ==
[2025-07-30 09:57] VITALS: BMI 34.1
--- NOTE | 2025-07-30 09:57 | A.OFFVIS_ITS ---
Vital Signs 07/30/25 09:57 Height 5 ft 8 in Weight 224 lb BMI 34.1 Intake Visit Reasons: Diabetic foot evaluation Intake Note: delfina is a 44 year old female who presents today as a new patient for a diabetic foot eval. Patient reports his glucoses is currently at 113 and his last reported A1c was 7.1%. He denies experiencing bilateral numbness and tingling in his feet. Patient reports no previous medical history of wounds or amputation to his feet. Allergies PCN Allergy (Unknown, Uncoded 06/04/25 11:17) oral swelling HPI HPI Diabetic foot evaluation: Details: 44-year-old male with past medical history of diabetes mellitus type 2, hype rlipidemia, GERD, anxiety presents for annual diabetic foot evaluation. The patient denies any history of wounds or ulcerations of the feet. Denies any pain to his feet. Denies burning numbness or tingling to his feet. He does endorse itching to the bottom of his feet. Denies complaint of leg swelling or ankle sprains. Denies issues with ambulation. [facility] Medical History (Updated 07/30/25 @ 10:19 by Arnoldo Kebede DPM) Tinea pedis LFT elevation Colon cancer screening Second degree sunburn Rectal bleeding Otitis externa Physical exam, annual Shoulder pain Cough Gastritis High blood sugar COVID-19 virus infection Obesity Physical exam External hemorrhoids Surgical History No pertinent past surgical history Family History Father History of colon cancer Mother History of colon polyps Substance use disorder Mental health disorder Social History (Updated 09/28/24 @ 14:37 by Jenni Platt MD) Housing: Other Housing Other:: [facility] Alcohol intake: never Comment: once Q months 2 drinks Patient Tobacco Use Status: Never used Tobacco Tobacco use type: Cigarette e-Cigarette/Vaping Use: Never Used Second Hand Smoke Exposure: No service: No Current occupational status: disabled Cognitive needs: No Hearing needs: No Vision needs: No Review of Systems Const All systems reviewed & are unremarkable except as noted in HPI and below Physical Exam Vital Signs: BMI result Body Mass Index 34.1 Extrem Other: *Bilateral Lower Extremity Focused Diabetic Foot Exam Vascular: DP/PT 2/4, CFT<3s to digits, TG warm to cool, no pedal edema, pedal hair present Derm: Skin: Annual scaling bilateral plantar feet, worse of the left heel. Interdigital spaces: Clear, no maceration or fungal infection. Nails: No onychomycosis, paronychia, or ingrown nails. Neuro: Star Tannery-kofi monofilament (10g) test 9/10 intact to right foot, 10/10 intact to left foot. Msk: Deformities: Flexible hammertoe deformities bilateral digits 1 through 5. Muscle strength: 5/5 in all muscle groups. Gait: Normal, no antalgic or steppage gait observed. Footwear Assessment: Shoes inspected; appropriate fit, no excessive wear, or foreign objects noted. Results Reviewed Results Reviewed: Laboratory Tests 06/04/25 11:18 Hgb A1c (Clinic) 7.1 H Assessment & Plan Assessment & Plan (1) Type 2 diabetes mellitus with hyperglycemia: Code(s): E11.65 - Type 2 diabetes mellitus with hyperglycemia Category: Medical Plan: Risk Stratification: No current ulceration, infection, or pre-ulcerative lesion. No loss of protective sensation or peripheral arterial disease. No plans for further testing/referrals for non-invasive vascular studies. Patient is at low risk for diabetic foot complications at this time. Recommendations: Continue routine foot care and daily self-inspection. Recommend moisturizing daily. Recommend supportive proper fitting shoe-wear. The patient may require diabetic shoes in the future. Reinforced diabetic foot education and risks from peripheral neuropathy. (2) Tinea pedis: Code(s): B35.3 - Tinea pedis Category: Medical Qualifiers: Laterality: bilateral Qualified Code(s): B35.3 - Tinea pedis Plan: * Rx Clotrimazole ointment * Follow up in 1 month Plan * Medications: New clotrimazole 1% 1 appl topical DAILY 15 grams 3RF 4 weeks Coding Level of Care Code New Pt Level 4 (61539) Diagnoses Type 2 diabetes mellitus with hyperglycemia E11.65 Tinea pedis of both feet B35.3 Laterality: bilateral Time Spent (min) 30
== END 2025-07-30 10:10 | disposition home or self-care (01) ==
LOC: HO.HPODS 09:51
PROVIDERS: PCP Internal Medicine; Visit Provider Student in an Organized Health Care Education/Training Program
DX: E11.65 Type 2 diabetes mellitus with hyperglycemia (principal); B35.3 Tinea pedis
CPT/HCPCS: 99204

== ENCOUNTER → 2025-07-30 09:49 | Outpatient (BNVA) | payer MEDICARE, MEDICAID, SELFPAY | PROVIDERS: PCP Internal Medicine; Visit Provider Student in an Organized Health Care Education/Training Program | DX: E11.65 Type 2 diabetes mellitus with hyperglycemia (principal); B35.3 Tinea pedis | CPT/HCPCS: 99202 ==

== ENCOUNTER 2025-08-06 11:34 | Outpatient (AMB) | payer MEDICARE, MEDICAID, SELFPAY ==
[2025-08-06 11:37] VITALS: BMI 34.4
--- NOTE | 2025-08-06 11:37 | A.OFFVIS_ITS ---
VS Expanded 08/06/25 11:37 08/06/25 12:26 Height 5 ft 8 in 5 ft 8 in Weight 226 lb 226 lb BMI 34.4 34.4 Intake Visit Reasons: Type 2 diabetes mellitus with hyperglycemia Allergies PCN Allergy (Unknown, Uncoded 06/04/25 11:17) oral swelling Nutrition Presentation Details: Pt presents for MNT for T2DM Pt presents with staff from assisted living facility. Pt reports working on reducing on portions of starches (rice/pastas) and working on following healthy plate method. Food frequency coffee/diet cream fruits: 1-2/d ve x/wk dairy : 3+d fish: 0-1/wk physical activity: 0-3/wk stationary bike 20-30 minutes BS Monitoring Most Recent Diabetes Results: Cholesterol, (<200) 142 mg/dL 07/19/25 HDL Cholesterol, (>40) 45 mg/dL 07/19/25 Triglycerides, (<150) 105 mg/dL 07/19/25 Creatinine, (0.5-1.4) 0.89 mg/dL 07/19/25 BUN, (9-16) 15 mg/dL 07/19/25 Sodium, (135-145) 143 mmol/L 07/19/25 Potassium, (3.3-5.1) 4.0 mmol/L 07/19/25 Chloride, (96-108) 108 mmol/L 07/19/25 Carbon Dioxide, (22-29) 28 mmol/L 07/19/25 Calcium, (8.4-10.2) 8.8 mg/dL 07/19/25 AST, (5-37) 37 U/L 07/19/25 ALT, (0-40) 72 U/L H 07/19/25 Total Protein, (6.5-8.0) 6.7 g/dL 07/19/25 Albumin, (3.5-5.0) 4.7 g/dL 07/19/25 FWM-Evtmbts-Da.Jeor Equation Height: 5 ft 8 in Weight: 226 lb Resting Metabolic Rate: 1882.27 Calculated Activity Level: Sedentary Calories Needed to Maintain Weight: 2258.72 Diagnosis Nutrition problem #1: altered nutrition labs As related to (etiology) #1: lack of nutrit education and diagnosis As evidenced by (sign/symptom) #1: knowledge deficit of diet [facility] Medical History (Updated 07/30/25 @ 10:19 by Arnoldo Kebede DPM) Tinea pedis LFT elevation Colon cancer screening Second degree sunburn Rectal bleeding Otitis externa Physical exam, annual Shoulder pain Cough Gastritis High blood sugar COVID-19 virus infection Obesity Physical exam External hemorrhoids Surgical History No pertinent past surgical history Family History Father History of colon cancer Mother History of colon polyps Substance use disorder Mental health disorder Social History (Updated 09/28/24 @ 14:37 by Jenni Platt MD) Housing: Other Housing Other:: [facility] Alcohol intake: never Comment: once Q months 2 drinks Patient Tobacco Use Status: Never used Tobacco Tobacco use type: Cigarette e-Cigarette/Vaping Use: Never Used Second Hand Smoke Exposure: No service: No Current occupational status: disabled Cognitive needs: No Hearing needs: No Vision needs: No Assessment & Plan Assessment & Plan (1) Type 2 diabetes mellitus with hyperglycemia: Code(s): E11.65 - Type 2 diabetes mellitus with hyperglycemia Category: Medical Plan: current wt: 103 kg ( 08/14 ) est kcal needs as per MSJ: 2200 est protein needs as per 1 g/kg BW: 100 est fluid needs as per 30 ml/kg BW: 3000 Recommended fiber > 12 g /day and gradually increase up to 25-28 g /day or as tolerated Nutrition topics discussed : Reviewed (R), Pt verbalized understanding (V) , not applicable (N/A) R, : Healthy Plate Method Concept: R, : Carbohydrates: food sources of carbohydrates, relationship of carbohydrates to blood glucose, fatty liver GI health. Recommended total amount of carbohydrates per meals and snack. Differences between simple carbohydrates and complex carbohydrates R, : Lean protein foods including vegan , vegetarian sources of protein. Benefits of protein (including but not limited to healing, nutritional value , benefits in weight loss, glucose control R, V, N/A: Fats : Source of fats, benefits of fats. Difference between saturated and unsaturated fats. Saturated fats and its contribution to inflammation R, : Fiber: food sources and role of fiber in the diet (including but not limited to its role as a prebiotic, benefits in constipation, role in IBS , role in glucose control and cholesterol level) R, : Hydration: role of hydration and prevention of dehydration or over hydration. Foods and water content. R, V, N/A: Vitamins and Minerals in foods and supplements R, V, N/A: Interpreting food labels, including serving size, macronutrients, vitamins, minerals, allergens, ingredient list , % daily value Patient Instructions: Follow healthy plate method- see meal ideas as reference Choose no sugar added dressings, sauces,including cough syrups, working on reducing sugar intake Engage in physical activity 40 minutes, 3 times a week , unless otherwise specified by your doctor Coding Level of Care Code Nutr Indiv Intake (50005) Diagnoses Type 2 diabetes mellitus with hyperglycemia E11.65 Time Spent (min) 30
[2025-08-06 12:26] VITALS: BMI 34.4
== END 2025-08-06 12:02 | disposition home or self-care (01) ==
LOC: HO.ENCR 11:35
PROVIDERS: PCP Internal Medicine; Visit Provider Dietitian, Registered
DX: E11.65 Type 2 diabetes mellitus with hyperglycemia (principal)

== ENCOUNTER → 2025-08-06 11:34 | Outpatient (BNVA) | payer MEDICARE, MEDICAID, SELFPAY | PROVIDERS: PCP Internal Medicine; Visit Provider Dietitian, Registered | DX: E11.65 Type 2 diabetes mellitus with hyperglycemia (principal); E66.9 Obesity, unspecified; Z68.34 Body mass index [BMI] 34.0-34.9, adult; Z71.3 Dietary counseling and surveillance | CPT/HCPCS: 97802 ==

== ENCOUNTER 2025-08-29 10:35 | Outpatient (AMB) | payer MEDICARE, MEDICAID, SELFPAY ==
[2025-08-29 10:38] VITALS: BMI 34.4
--- NOTE | 2025-08-29 10:38 | A.OFFVIS_ITS ---
Vital Signs 08/29/25 10:38 Height 5 ft 8 in Weight 226 lb BMI 34.4 Intake Visit Reasons: Diabetic foot evaluation Intake Note: Lino is a 44 year old male who presents to the office today for a follow up Diabetic foot evaluation. At last visit patient was prescribed Clotrimazole ointment. Pt states he is doing well, however he would like to discuss other treatment options due to the ointment that was prescribed cause symptoms of a rash, no further concerns at this time. Allergies PCN Allergy (Unknown, Uncoded 06/04/25 11:17) oral swelling HPI HPI Diabetic foot evaluation: Details: 44-year-old male with past medical history of diabetes mellitus type 2, hyperlipidemia, GERD, anxiety returns for bilateral athlete's foot. He states he has been applying the topical antifungal however he noted increased itching due to his so he stopped using it. History: The patient denies any history of wounds or ulcerations of the feet. Denies any pain to his feet. Denies burning numbness or tingling to his feet. He does endorse itching to the bottom of his feet. Denies complaint of leg swelling or ankle sprains. Denies issues with ambulation. [facility] Medical History (Updated 08/29/25 @ 10:57 by Arnoldo Kebede DPM) Tinea pedis LFT elevation Colon cancer screening Second degree sunburn Rectal bleeding Otitis externa Physical exam, annual Shoulder pain Cough Gastritis High blood sugar COVID-19 virus infection Obesity Physical exam External hemorrhoids Surgical History No pertinent past surgical history Family History Father History of colon cancer Mother History of colon polyps Substance use disorder Mental health disorder Social History (Updated 09/28/24 @ 14:37 by Jenni Platt MD) Housing: Other Housing Other:: [facility] Alcohol intake: never Comment: once Q months 2 drinks Patient Tobacco Use Status: Never used Tobacco Tobacco use type: Cigarette e-Cigarette/Vaping Use: Never Used Second Hand Smoke Exposure: No service: No Current occupational status: disabled Cognitive needs: No Hearing needs: No Vision needs: No Review of Systems Const All systems reviewed & are unremarkable except as noted in HPI and below Physical Exam Vital Signs: BMI result Body Mass Index 34.4 Extrem Other: *Bilateral Lower Extremity Focused Diabetic Foot Exam Vascular: DP/PT 2/4, CFT<3s to digits, TG warm to cool, no pedal edema, pedal hair present Derm: Skin: Annual scaling bilateral plantar feet, worse of the left heel, overall improved. Also present to the right 3rd plantar sulcus. Interdigital spaces: Clear, no maceration or fungal infection. Nails: No onychomycosis, paronychia, or ingrown nails. Neuro: [place]-kofi monofilament (10g) test 9/10 intact to right foot, 10/10 intact to left foot. Msk: Deformities: Flexible hammertoe deformities bilateral digits 1 through 5. Muscle strength: 5/5 in all muscle groups. Gait: Normal, no antalgic or steppage gait observed. Footwear Assessment: Shoes inspected; appropriate fit, no excessive wear, or foreign objects noted. Assessment & Plan Assessment & Plan (1) Tinea pedis: Code(s): B35.3 - Tinea pedis Category: Medical Qualifiers: Laterality: bilateral Qualified Code(s): B35.3 - Tinea pedis Plan: * Discontinue clotrimazole, Rx clotrimazole-betamethasone for itchiness * Follow up in 1 month (2) Type 2 diabetes mellitus with hyperglycemia: Code(s): E11.65 - Type 2 diabetes mellitus with hyperglycemia Category: Medical Qualifiers: Diabetes mellitus predatory animal exterminator insulin use: without predatory animal exterminator use Qualified Code(s): E11.65 - Type 2 diabetes mellitus with hyperglycemia Plan: Risk Stratification: No current ulceration, infection, or pre-ulcerative lesion. No loss of protective sensation or peripheral arterial disease. No plans for further testing/referrals for non-invasive vascular studies. Patient is at low risk for diabetic foot complications at this time. Recommendations: Continue routine foot care and daily self-inspection. Recommend moisturizing daily. Recommend supportive proper fitting shoe-wear. The patient may require diabetic shoes in the future. Reinforced diabetic foot education and risks from peripheral neuropathy. Plan Patient Instructions - Stop using the cream that caused itching. - A new cream will be prescribed and sent to your pharmacy. - Apply the new cream to the affected area on your foot once a day. - We will check in with you in about a month to see how the new cream is working. Medications: New clotrimazole-betamethasone 1-0.05 % apply to the bottom of both feet 1 appl topical DAILY 45 grams 1RF athlete's foot 4 weeks B35.3 - Tinea pedis Coding Level of Care Code Est Pt Level 3 (24069) Diagnoses Tinea pedis of both feet B35.3 Laterality: bilateral Type 2 diabetes mellitus with hyperglycemia, without long-term current use of insulin E11.65 Diabetes mellitus alf insulin use: without predatory animal exterminator use Time Spent (min) 15
== END 2025-08-29 10:54 | disposition home or self-care (01) ==
LOC: HO.HPODS 10:36
PROVIDERS: PCP Internal Medicine; Visit Provider Student in an Organized Health Care Education/Training Program
DX: B35.3 Tinea pedis (principal); E11.65 Type 2 diabetes mellitus with hyperglycemia
CPT/HCPCS: 99213

== ENCOUNTER → 2025-08-29 10:35 | Outpatient (BNVA) | payer MEDICARE, MEDICAID, SELFPAY | PROVIDERS: PCP Internal Medicine; Visit Provider Student in an Organized Health Care Education/Training Program | DX: B35.3 Tinea pedis (principal); E11.65 Type 2 diabetes mellitus with hyperglycemia | CPT/HCPCS: 99212 ==